=== PATIENT | male | born 1945 | race Caucasian/White ===

== ENCOUNTER 2016-09-29 12:00 | Inpatient (IN) | payer MEDICARE ==
[~2016-09-29] VITALS: Ht 188 cm; Wt 104.4 kg
--- NOTE | ~2016-09-29 | HP ---
PATIENT'S NAME: ELLIS SUE [facility] AGE: 71 Y [address] ROOM: [place] [address] LOCATION: [facility] ADMIT DATE: 09/29/2016 History & Physical DISCHARGE DATE: FAMILY PHYSICIAN: Helena Olvera PA-C ATTENDING PHYSICIAN: Deana Calderon DATE OF SERVICE: 09/29/2016 The patient was referred from [place]. REASON FOR REFERRAL: Intracerebral hemorrhage. PATIENT IDENTIFICATION: Ellis Sue is a 71-year-old male. PRESENTING COMPLAINTS: Decline in function. HISTORY OF PRESENT ILLNESS: History was obtained in part from the patient's family, , as well as the patient, himself. History is that the patient has been experiencing decline in his thought as well as in his gait over the last three weeks. The symptoms got more severe in the last 3 days. The patient also started having difficulty with vision and trouble with focusing and having headache since September 12, 2016. The patient was seen in the emergency room at [facility] and a head CT scan was obtained. The head CT scan indicated left occipital hemorrhage with possible tumor. The patient was therefore transferred to [place] for evaluation and treatment. PAST MEDICAL HISTORY: Significant for hypertension, hyperlipidemia, diverticulosis, prostatitis. MEDICATIONS: 1. Alprazolam. 2. Amlodipine. 3. Ascorbic acid. 4. Aspirin. 5. Cholecalciferol. 6. Fenofibrate. 7. Fish oil. 8. Furosemide. 9. Glucosamine. 10. Latanoprost. PATIENT'S NAME: ELLIS SUE [facility] AGE: 71 Y [address] ROOM: [place] [address] LOCATION: [facility] ADMIT DATE: 09/29/2016 History & Physical DISCHARGE DATE: FAMILY PHYSICIAN: Helena Olvera PA-C ATTENDING PHYSICIAN: Deana Calderon 11. Lisinopril. 12. Multivitamin. 13. Simvastatin. 14. Timolol. 15. Tramadol. 16. Bactrim. ALLERGIES: DULOXETINE. FAMILY HISTORY: No family history relevant to present problems. SOCIAL HISTORY: The patient is a retired construction electrician. He is . REVIEW OF SYSTEMS: A 10-point review of systems was carried out. The only abnormal finding was as reported in the history of present illness. PHYSICAL EXAMINATION: GENERAL: The patient is a pleasant gentleman, who was alert and cooperative through the examination. VITAL SIGNS: Blood pressure 147/69, pulse rate 73. NEUROLOGIC: Speech is intact. Cranial nerves, the patient has a right visual field defect. There is no facial droop. Motor examination, the patient has grossly normal strength in all the major muscle groups of his upper and lower extremities. He is able to ambulate with a walker, but he is unsteady on his feet. HEAD: His head is atraumatic. EYES AND EARS: No evidence of trauma. SKIN: No skin rashes or skin masses. EXTREMITIES: No cyanosis or clubbing. CARDIOVASCULAR: Heart sounds are present. RESPIRATORY: The patient is not short of breath at bedside. REVIEW OF IMAGING STUDIES: The patient has had a head CT scan performed in [place] on September 29, 2016. CT scan shows a hemorrhage with possible underlying lesion. He has also had an MRI done here at [facility]. The MRI shows a 29 x 30 mm nodular enhancing mass at the left occipital pole with secondary hemorrhage in the occipital lobes extending anteriorly with surrounding vasogenic edema. DIFFERENTIAL DIAGNOSIS: Includes metastatic lesions versus primary brain neoplasm with secondary PATIENT'S NAME: ELLIS SUE [facility] AGE: 71 Y [address] ROOM: [address] [address] LOCATION: [facility] ADMIT DATE: 09/29/2016 History & Physical DISCHARGE DATE: FAMILY PHYSICIAN: Helena Olvera PA-C ATTENDING PHYSICIAN: Deana Calderon. ASSESSMENT: A 71-year-old male with history of decline both in thought process and gait in the last 3 weeks, worsening over the last couple of days, associated with visual disturbances and headache. Imaging studies show a hemorrhagic left occipital mass with surrounding edema. MEDICAL DECISION MAKING: I reviewed the imaging studies with the patient and his and explained the findings to them. I told her that the patient likely has hemorrhage from a tumor and it will be necessary to clarify the type of tumor. This will require obtaining tissue and the most efficient way of doing this would be with the craniotomy. I have therefore recommended the procedure of left occipital craniotomy for resection of mass and evacuation of hematoma to the patient and his . The rationale will be to obtain a sample of the tumor to enable further treatment if needed and also to remove the hemorrhage around it. Hopefully, this surgery will be carried out in the next few days. The patient and his had a chance to ask questions which have been answered as best as possible. I will put his name down provisionally for surgery on October 02, 2016 or sooner, if there is a change in his level of consciousness. MD JIL FARIA/catrachito /[id number]: [id number] T: [id number] HISTORY & PHYSICAL
--- NOTE | ~2016-09-29 | OR ---
PATIENT'S NAME: SAVANNAH BAIG [facility] AGE: 71 Y [address] ROOM: [address] [address] LOCATION: [facility] ADMIT DATE: 09/30/2016 OR/Procedure Report DISCHARGE DATE: FAMILY PHYSICIAN: Helena Olvera PA-C ATTENDING PHYSICIAN: Deana Calderon SURGEON: Deana Calderon MD TOY STUFFER: Angela Olivia. DATE OF PROCEDURE: 10/02/2016 PREOPERATIVE DIAGNOSIS: Left occipital hemorrhagic brain tumor. POSTOPERATIVE DIAGNOSIS: Left occipital hemorrhagic brain tumor with involvement of right occipital lobe. PROCEDURE PERFORMED: 1. Left occipital craniotomy and resection of hemorrhagic tumor. 2. Right occipital biopsy of abnormal right occipital area. ANESTHESIA: General. ANESTHESIA PROVIDER: Suhail Purvis MD. HISTORY: The patient is a 71-year-old gentleman who presented with decline in his overall level of function and his thought process. The patient had a head CT scan, which showed a left occipital hemorrhage with possible underlying tumor and this was confirmed with MRI scan. Neurologically, the patient had reduction in his visual field on the right- side. He was also unsteady on his feet and nauseated with headache. Surgery was recommended to help establish a diagnosis and to help plan treatment. The procedure, benefits, and risks were discussed with the patient and his ; and with his consent, he was brought to the operating room for surgery. Prior to the surgery, MRI was done with Modtialth protocol to help with surgery planning. PROCEDURE IN DETAIL: In the operating room, the patient was placed in a supine position. Anesthesia was induced. He was intubated, a Lauren catheter was placed, and appropriate support lines were placed. The patient's head was then secured in a 3-pin Garcia head of conservation and he was turned to a prone position on a Roberto table taking care to protect all pressure points. The [employer] System was setup and registration was carried out. Using the stealth images, the incision line was marked out corresponding to the surface marking of the tumor in the patient's occipital area. The hair was clipped. A horseshoe incision was marked out. The whole area was prepped and draped in a sterile fashion. Local anesthesia was infiltrated along the incision line. PATIENT'S NAME: SAVANNAH BAIG [facility] AGE: 71 Y [address] ROOM: [id number], [place] [address] LOCATION: [facility] ADMIT DATE: 09/30/2016 OR/Procedure Report DISCHARGE DATE: FAMILY PHYSICIAN: Helena Olvera PA-C ATTENDING PHYSICIAN: Deana Calderon The incision was opened with a #10 blade and Bovie was used to extend the incision to the skull. The scalp was peeled back and held back with 2-0 Vicryl sutures attached to rubber bands, which was in turn held with Allis forceps. A nitesh hole was made and a craniotomy flap was turned. The dura was opened. The dural opening exposed both the left and right occipital areas. There was some discoloration in the right occipital lobe. The biopsy was taken from this area and it was sent for frozen section. The frozen section results came back indicating diagnostic tissue with hypercellularity in areas. The bulk of the tumor was in the left occipital area. The craniotomy was therefore extended to fully expose the left occipital area as well. The dura was opened. The tumor became visible. Working very carefully, the BooknGon ultrasound aspirator was used to remove the tumor as well as the hemorrhage associated with it. The tumor removal continued until all abnormal tissue was removed. This portion was also sent for permanent section. The microscope was brought in and a thorough search was made for any abnormal areas of tumor and all visibly abnormal tissue was removed. Irrigation was used to wash out the debris and hemostasis was achieved. The dura was closed. It was not possible to close the dura completely and some dura repair was used to augment the dural closure. The bone flap was then replaced. The pieces of bone were sewn together with sutures using holes drilled around the bone flap edges as well as around the craniotomy edges. The bone flap was then attached to the craniotomy defect. The scalp was closed using appropriate suture materials. A sterile dressing was applied. The patient was then rolled back to supine position. The Garcia head of conservation was removed from his head. His anesthesia was reversed, he was extubated, and taken to the recovery room to complete his recovery. I was present at and performed every aspect of this procedure, assisted by the operating room nurses. There were no apparent intraoperative complications. Swabs, needles, and instruments were all accounted for at the end of the case. Estimated blood loss was 200 mL and there was no reason for blood transfusion. The patient's prognosis is uncertain at this time given the diagnosis of malignant tumor. There was also involvement of the right occipital area from the biopsy we took. Further treatment will depend on the final pathology. PATIENT'S NAME: SAVANNAH BAIG [facility] AGE: 71 Y [address] ROOM: [id number] [address] LOCATION: [facility] ADMIT DATE: 09/30/2016 OR/Procedure Report DISCHARGE DATE: FAMILY PHYSICIAN: Helena Olvera PA-C ATTENDING PHYSICIAN: Deana Calderon MD CNO/catrachito /[id number] d: 10/03/162357 t: 10/14/162019, OPERATIVE SUMMARY
--- NOTE | ~2016-09-29 | DS ---
PATIENT'S NAME: SAVANNAH BAIG [facility] AGE: 71 Y [address] ROOM: [address] [address] LOCATION: [facility] ADMIT DATE: 09/30/2016 Discharge Summary DISCHARGE DATE: 10/06/2016 FAMILY PHYSICIAN: Helena Olvera PA-C ATTENDING PHYSICIAN: Deana Calderon REASON FOR ADMISSION: The patient is a 71-year-old gentleman referred from [facility]. The patient and his indicated that the patient had been gradually declining in function both in his thought processes as well as in his walking in the 3 weeks prior to admission and especially in the 3 days prior to admission. The patient has also had headaches and trouble with his vision. A head CT scan showed a large left occipital hematoma. MRI scan showed that there was a mass associated with the hematoma. Clinically, the patient was very weak and could hardly ambulate on his own. He walked short distances with a walker and had a right significant homonymous hemianopia. TREATMENT RENDERED: The patient was taken to the operating room and underwent craniotomy and resection of the occipital hematoma and mass. Final pathology confirmed that this was a malignant melanoma. The patient was referred to oncology for consultation, and he has been seen and is being followed up by Oncology. At the time of dismissal, the patient's vision had improved and he was able to read the clock on the wall from his bed. He was able to ambulate independently, but he was hampered by the right homonymous hemianopsia. He was also followed up by Dr. Rangel, his regular policyholder information clerk. I will see the patient back in clinic after about a week to take his sutures out. FINAL DIAGNOSIS: Metastatic tumor to occipital region with associated hemorrhage, final pathology melanoma. MD JIL FARIA/catrachito /[id number] d: 10/15/16 0156 t: 10/15/161999, DISCHARGE SUMMARY
[2016-09-29] MEDS ORDERED: NORVASC5 MG PO (13:50)
[2016-09-29] MEDS ORDERED: VITAMIN C1000 MG PO (13:51)
[2016-09-29] MEDS ORDERED: ASPIRIN LO-DOSE81 MG PO (13:51)
[2016-09-29] MEDS ORDERED: TRICOR145 MG PO (13:52)
[2016-09-29] MEDS ORDERED: VITAMIN D-32000 UNI1 PO (13:52)
[2016-09-29] MEDS ORDERED: FISH OIL 1,2001 EACH PO (13:52)
[2016-09-29] MEDS ORDERED: XALATAN2.5 ML OPHTH (13:53)
[2016-09-29] MEDS ORDERED: GLUCOSAMINE &1 EACH PO (13:53)
[2016-09-29] MEDS ORDERED: PRINIVIL (ZESTRI5 MG PO (13:53)
[2016-09-29] MEDS ORDERED: BACTRIM DS1 TAB PO (13:54)
[2016-09-29] MEDS ORDERED: ULTRAM50 MG PO (13:54)
[2016-09-29] MEDS ORDERED: ZOCOR40 MG PO (13:54)
[2016-09-29] MEDS ORDERED: MULTIPLE VITAM1 EACH PO (13:54)
[2016-09-29] MEDS ORDERED: TIMOPTIC XE 0.5%5 ML OPHTH (13:54)
[2016-09-29] MEDS ORDERED: SUDAFED30 MG PO (13:56)
[2016-09-29] MEDS ORDERED: TYLENOL EXTRA500 MG PO (13:58)
--- NOTE | 2016-09-29 14:37 | NUR ---
71 Y/O MALE ADMITTED FOR A LT OCCIPITAL INTERCEREBRAL HEMORRHAGE - C/O FOR THE PAST FEW WEEKS OF NYSTAGMUS, HEADACHES, UNSTEADY GAIT, WEAKNESS, DIZZINESS, CONFUSION, FORGETFUL OF & ABOUT SIMPLE THINGS. PT IS A&OX3 BUT DID NOTICE TODAY THAT HE IS UNABLE TO READ WRITTEN WORDS ON A PAGE. ALLERGIES - CYMBALTA MEDICAL & SURGICAL HISTORY - APPY, BILAT ROTATOR CUFF, LT BROKEN SHOULDER, TONSILS. GLAUCOMA, HYPERTENSION, HIGH CHOLESTEROL, RECURRENT PROSTATITIS, DIVERTICULITIS, INDEGESTION, HX OF A GI BLEED RELATED TO BEING ON LASIX & POTASSIUM YRS AGO. DOES HAVE SOME BILAT LOWER LEG EDEMA NOTED. DEPRESSION & ANXIETY WITH A HISTORY OF 2 ADMITS TO [facility] IN [place] AND HAVING 14 ECT'S IN 2006. PT HISTORY OF BEING A FORMER SMOKER X23 YRS BUT QUIT IN 1986, THEN CHEWED TOBACCO AFTER THAT & QUIT IN 2001. DRINKS ALCOHOL 3X/WK AND ONLY 1 DRINK WHEN HE HAS SOMETHING. REPORT GIVEN TO PT PRIMARY CARE NURSE [facility] ADM EDUCATION COMPLETED WITH PT & HIS .
--- NOTE | 2016-09-29 15:13 | NUR ---
Significant Event: Patient is alert and oriented x3. VSS on RA. Lungs are clear and slightly diminished in the bases. PERRLA. Follows commands, and moves spontaneous. NIHSS-4. Patient is unable to see peripheral vision on the right side. Can't see hand until it is lined up with nose. Frontal MATIAS. Edema to right leg- 2+, left leg is 1+. Small abrasions to right leg. Stress in continence at times. at bedside. Pleasant and cooperative with care. Follow up:
[2016-09-29 17:28] LABS: ESTIMATED GFR (MDRD EQUATION) > 60
--- NOTE | 2016-09-30 02:29 | NUR ---
Significant Event: Alert to self had problems with first assessment telling me day and year but was able to give me full date on second assessment. Able to state location. Follows commands. Some peripheral vision loss on R) side. Ataxia on R). Has R) leg drift. NIHSS 5. Up 1 assist GBW. On tele SR. Has edema to lower extremities. RA lungs clear and dim. Regular diet. Has some stress inc. IV to R) forearm SL. Follow up:
--- NOTE | 2016-09-30 16:28 | NUR ---
Significant Event: Oriented to person and place first and third assessment. Patient was drowsy and disoriented to time and place on second assessment but later was able to arouse and was re-oriented to person and place. Physician saw patient today and spoke with patient and family in regards to MRI. Will have craniotomy on Sunday. Has been nauseated today and states he feels constipated. Administered Zofran and milk of magnesia. Patient has difficulty voiding at times but is able to after trying for a few minutes. Refuses pain medication and states pain in head is tolerable throughout the shift. VSS. 1A with walker and gait belt and can be unsteady. at bedside throughout shift. Pupils equal and reactive. Vital signs stable. Follow up:
--- NOTE | 2016-09-30 17:39 | NUR ---
09/30/16: MARÍA FRY,RN HAS READ/REVIEWED [facility] RN CHARTING AND AGREES.
--- NOTE | 2016-10-01 05:23 | NUR ---
Significant Event: PATIENT IS ALERT AND ORIENTED X3. FORGETFUL, STATED EARLIER IN SHIFT THAT HE JUST FEELS "FOGGY". VSS. PERRLA. FOLLOWS COMMANDS. DENIES PAIN, MATIAS, N/V, N/T. SR-SINUS GYPSY. ROOM AIR-1L AT [facility]. REGULAR DIET, TAKES ONE-TWO PILLS AT A TIME. LAST BM 09/28-ACTIVE X4. 1A GB/WALKER-UNSTEADY. R) FA-SL'D. DOES HAVE SOME RIGHT PERIPHERAL VISION LOSS. USES GRADUATE URINAL-PATIENTS PREFERENCE. Follow up: SURGERY SCHEDULED FOR SUNDAY.
--- NOTE | 2016-10-01 17:30 | NUR ---
Significant Event: Oriented x3. PERRLA 3.0. Ambulates 1A with gait belt. Denies nausea today and has been able to eat some food. Denies pain or discomfort. Permits signed for craniotomy tomorrow morning and to be NPO at midnight. VSS and on room air today. at bedside throughout the shift. IV R)forearm and receives IV decadron. Follow up:
--- NOTE | 2016-10-01 17:48 | NUR ---
10/01/16: MARÍA FRY,RN HAS READ/REVIEWED [facility] RN CHARTING AND AGREES
[2016-10-01 18:45] LABS: BASOPHIL % 0.1 %; HEMATOCRIT 41.1 % (37.0-53.0); HEMOGLOBIN 14.2 g/dL (11.0-16.0); IMMATURE GRANULOCYTE # 0.1 K/uL (0.0-0.3); IMMATURE GRANULOCYTE % 0.4 %; LYMPHOCYTE # 1.4 K/uL (0.8-4.0); LYMPHOCYTE % 10.4 %; MCH 30.5 pg (27.0-34.0); MCHC 34.5 gm/dL (32.0-36.5); MCV 88.2 fl (83.0-98.0); MONOCYTE # 0.4 K/uL (0.0-1.0); MONOCYTE % 3.3 %; MPV 10.3 fl (9.4-12.4); NEUTROPHIL # (ANC) 11.3 K/uL (1.4-9.0); NEUTROPHIL % 85.8 %; NRBC % 0 /100WBC (0-0.00); PLATELET COUNT 264 K/uL (150-450); RBC 4.66 M/uL (3.50-5.50); RDW-CV 12.8 % (11.9-14.6); WBC 13.1 K/uL (4.0-11.0)
[2016-10-01 18:54] LABS: INR - (THERAPEUTIC) 1.07 (0.92-1.07); PROTIME 11.2 SECONDS (9.8-11.4); PTT 27 SECONDS (25-32)
[2016-10-01 19:02] LABS: ALBUMIN 3.7 gm/dL (3.5-5.0); ANION GAP 13.1 (10.0-19.0); CALCIUM 9.5 mg/dL (8.5-10.5); CREATININE 1.2 mg/dL (0.6-1.3); POTASSIUM 4.1 mMol/L (3.7-5.1); TOTAL BILIRUBIN 0.6 mg/dL (0.0-1.5); TOTAL PROTEIN 6.9 g/dL (6.0-8.4)
--- NOTE | 2016-10-02 04:29 | NUR ---
Significant Event: PATIENT IS ALERT AND ORIENTED X3. FOLLOWS COMMANDS. VSS. PERRLA. R) ARM WEAK HAND GRASP, R) LEG MODERATE, L) STRONG. R) VISUAL IMPAIRMENT. DENIES N/T AND PAIN. DOES HAVE A SLIGHT MATIAS. SINUS RHYTHM. ROOM AIR. REGULAR DIET-POOR. LAST BM 09/28-ACTIVE X4. 1A GB/WALKER. DOES LIKE TO STAND AT BEDSIDE AND URINATE IN A GRADUATE. R) FA-SHILPI'D. PRE-OP SHOWER DONE. Follow up: SURGERY AT 0730 AND THEN TO ICU.
--- NOTE | 2016-10-02 18:48 | NUR ---
SIGNIFICANT EVENT: PATIENT ALERT, ORIENTED X3. OPENS EYES SPONTANEOUSLY AND TO VOICE. PUPILS EQUAL AND REACTIVE. SPEECH IS SLOW AND MUMMBLED. PATIENT MORE ALERT TOWARDS THE END OF THE SHIFT. PATIENT COMPLAINED OF OCCIPITAL REGION HEADACHE ONCE, MORPHINE 2 MG IV GIVEN, RELIEF NOTED, DR TONG AWARE AND NOTIFIED OF ALL NEURO ASSESSMENT FINDINGS. PATIENT MOVES ALL 4 EXTREMITIES SPONTANEOUSLY AND TO COMMANDS. R) SIDE WEAKED THAN L). SIGNIFICANT DEFICIT OF PERIPHERAL VISION, UNLESS IT'S UPCLOSE AND IN CENTRAL VISION, PATIENT ONLY SEES SHADES OF COLORS AND SHAPES. PATIENT HAS BEEN IN SINUS RHYTHM, HR 60-90S. PULSES PALPABLE THROUGHOUT. EDEMA PRESENT IN LOWER EXTREMITIES. BP STABLE, HYDRALAZINE 10 MG GIVEN IV X1 TO KEEP SBP<160, AVAILABLE TO GIVE EVERY 1 HOUR. O2 DECREASED TO 2L NASAL CANNULA, SATS MID TO UPPER 90S. NON PRODUCTIVE COUGH. NPO. BOWEL SOUNDS ACTIVE, NO BM TODAY. SPEECH TO EVALUATE IN AM. RESUME PO MEDS WHEN AWAKE AND PASES BEDSIDE SWALLOW ASSESSMENT. MORGAN INTACT, ADEQUATE URINE OUTPUT. PATIENT REPOSITIONED EVERY 2 HOURS. L) PIV INFUSING NS AT 75 ML/HR. NO COMPLICATIONS. FOLLOW UP: CONTINUE TO MONITOR
--- NOTE | 2016-10-03 03:53 | NUR ---
Significant Event: A&Ox3, Slow to respond to questions at times. Pupils equal and reactive. VSS on 2L O2. SBP between 150s-130s, no PRN BP meds given. Q1hr neuro checks. Patient states he is having blurred vision, peripheral vision impaired. Patient denies numbness/tingling. Moves all extremities spontaneously and to command. Right sided hand grasp slightly weaker than left. Complains of a generalized headache, but denies the need for pain medication. Morphine, 2MG, given X2. Lauren patent. Last BM on 09/28. NPO needs swallow study. Patient rested well this shift. at bedside through out night. Follow up:
--- NOTE | 2016-10-03 15:40 | NUR ---
SIGNFICANT EVENT: Pt remains Q1 Neuro checks. Oriented X [address] Sometimes forgetful to birthday and date. Pupils are 3 and brisk. Sensations are intact and appropriate. Pt states pain is dull to the occipital area. Currently on room air with sats at 95%. Lauren patent with 1350ml output. this shift. Current orders are for patient to remain bedrest. Pt passed bedside swallow test today by RN. Follow up for possible transfer.
--- NOTE | 2016-10-03 16:00 | NUR ---
Introduced self and role of care management to patient's and their granddaughter. Patient sleeps through conversation. Patient lives with in [place]. She says he is doing well but still has lots of visual changes, that she hopes improve. She plans on him going home when ready for discharge. She says he has not been out of bed since surgery but she anticipates he will do well. She says she is a nurse and isn't concerned about him going home. Will follow.
--- NOTE | 2016-10-04 05:30 | NUR ---
Significant Event: Patient A/Ox3. FOLLOWS COMMANDS. MOVES ALL EXTREMITIES. HR'S 50'S-60'S. VSS. REMAINS ON RA, O2 SATS >91%. NO BM DURING SHIFT. PULLED MORGAN AT 1920, 2340 PT UNABLE TO VOID, UNCOMFORTABLE. BLADDER SCANNED 300ML, CALLED DR TONG, REPLACED MORGAN AT 0000. ADEQ UOP. MORPHINE GIVEN FOR HEADACHE. TMAX 99.7. NS AT 75ML/HR. DRESSING TO R) HEAD C/D/I, CHANGED DURING SHIFT. Follow up: MRI THIS AM.
[2016-10-04 11:00] LABS: CREATININE 0.8 mg/dL (0.6-1.3)
[2016-10-04 11:02] LABS: ESTIMATED GFR (MDRD EQUATION) > 60
--- NOTE | 2016-10-04 12:15 | NUR ---
Spoke with patient's as patient is off the unit for MRI. Talked with her about how he did with therapy. She says he is about at the baseline he was before admission and she is confident she can care for him at home. She says plan is home and if anything changes she will let me know. Will follow.
--- NOTE | 2016-10-04 12:20 | NUR ---
Significant Event: a/o x3. Slow speech, takes some time to process information/gather thoughts. Occipital headache. Gave 2 mg morhphine x1 with some relief. VSS. RA. Lungs clear/dim. Active bowel sounds. No BM. Some nause late morning. Zofran x1. Lauren in place. Vision remains blurred, unable to distinguish between colors, can see differences in bright vs dim light only. 2A pivot to chair with walker. Left to MRI at 1205 Follow up: MRI results
--- NOTE | 2016-10-04 12:37 | NUR ---
A - NUT F/U. NAUSEA - MEDS GIVEN. DECREASED APPETITE. LABS: GLU 151, WBC 13.1. MEDS: IVF, DECADRON, BOWEL/NAUSEA. DIET: REG. INTAKE: REF-100% & NPO. NEEDS: 3951-1350 KCAL, 81-102 G PRO D - INADEQUATE NUTRIENT INTAKE R/T DECREASED APPETITE AEB INTAKE RECORD. I - GOAL FOR INTAKE 50-100% BY NEXT ASSESSMENT. WILL ADD ENSURE TID TO INC NUTRIENT INTAKE. M/E - WILL MONITOR INTAKE. F/U IN 3-5 DAYS.
--- NOTE | 2016-10-04 15:32 | NUR ---
Significant Event: ASSUMED CARES AT 1315. PATIENT DROWSY BUT ORIENTED. OPENS EYES TO VOICE. STATES HE IS JUST TIRED. JUST HAD GOTTEN BACK AT 1315 FROM MRI. PATIENT'S VISION IMPAIRED WORSE SINCE SURGERY SO DR TONG WANTED MRI DONE. AWAITING RESULTS. PUPILS 4MM, BRISK. FOLLOWS COMMANDS, RT SIDE WEAKER. DENIES NUMBNESS/TINGLING. LUNGS CLEAR AND DIM ON ROOM AIR. C/ O SLIGHT PAIN TO INCISION BUT HAS DENIED NEED FOR PAIN MEDS AT THIS TIME. DID HAVE MORPHINE THIS AM PER OTHER NURSE. DECREASED APPETITE, WAS NAUSEATED THIS AM. ZOFRAN GIVEN BY PRIOR NURSE AT 1100. HAS ONLY HAD SIPS OF WATER SO FAR TODAY. MORGAN INTACT DRAINING YELLOW URINE. IV'S X 2 IN RT AND LEFT FOREARMS, NORMAL SALINE RUNNING AT 75MLS/HR. DRESSING TO RT HEAD DRY AND INTACT. UP WITH 2 ASSIST PIVOT, REFUSED THERAPY THIS AFTERNOON. ALARMS ON FOR SAFETY. Follow up: NEURO STATUS/VISION. MRI RESULTS. NEED TO ASK DR TONG FOR ANOTHER PAIN MEDICATION POSSIBLY TO HAVE BESIDES MORPHINE. LAST BM 09/28, ALSO WILL NEED SOMETHING FOR THIS , BUT PATIENT HAS NOT REALLY BEEN EATING.
--- NOTE | 2016-10-05 04:25 | NUR ---
Significant Event: PATIENT WAS DROWSY BUT EASILY WOKEN BY VOICE AND TOUCH. ORIENTED AND PLEASANT. ANSWERS QUESTIONS APPROPRIATELY. REPORTS HIS VISION IS GETTING SLIGHTLY BETTER AND CAN NOW SEE COLORS AND SOME IMAGES SUCH FACES AND LETTERS. RIGHT SIDE SLIGHTLY WEAKER. DR. TONG ROUNDED LAST NIGHT REPORTING THE POSSIBILITY OF METS AND THE PLAN TO PERFORM A FULL BODY CT SCAN ALTHOUGH THIS WAS NOT ORDERED. OPTH. CONSULTED. RECEIVED TYLENOL AT HS. MORGAN TO DD. NS INFUSING AT 75ML/HR. DRESSING TO RIGHT POST. HEAD DRY AND INTACT. UP X2 ASSIST PIVOT. Follow Up: STOOL SOFTENER WAS MENTIONED TO DR. NO ORDERS WERE WRITTEN/OBTAINED. MAY MENTION THIS ONCE AGAIN TODAY.
[2016-10-05 10:38] LABS: CREATININE 0.8 mg/dL (0.6-1.3); ESTIMATED GFR (MDRD EQUATION) > 60
--- NOTE | 2016-10-05 13:38 | NUR ---
Significant Event: VSS. PATIENT A/O X 3. NOT NEARLY DROWSY TODAY YESTERDAY. FOLLOWS COMMANDS. RT SIDE REMAINS SLIGHTLY WEAKER BUT BETTER. DENIES NUMBNESS/TINGLING. PUPILS 4MM, BRISK. LUNGS CLEAR AND DIM ON ROOM AIR. C/O SLIGHT PAIN TO RT HEAD INCISION THIS AM, TYLENOL GIVEN AT 0640 WITH RELIEF NOTED. DRESSING TO RT HEAD CHANGED TODAY OTHER CAME OFF. UP WITH 2 ASSIST AND WALKER. REG DIET, BETTER APPETITE TODAY. PATIENT GOING DOWN NOW FOR CT OF CHEST, ABDOMEN, AND PELVIS. IV X 2 IN RT AND LEFT FOREARMS. ALARMS ON FOR SAFETY. Follow up: NIHSS. MONITOR NEURO STATUS. RESULTS OF CT.
--- NOTE | 2016-10-06 04:27 | NUR ---
Significant Event: PATIENT ALERT AND ORIENTED X3 THROUGHOUT SHIFT. FOLLOWS COMMANDS.STRENGTH SEEMS TO BE EQUAL BILATERALL. VISION IMPROVED. PATIENT CAN READ SOME WORDS. DENIES PAIN AND NEED FOR TYLENOL. DRESSING TO BACK OF HEAD REPLACED. POOR APPETITE BUT DRINKS ENSURE WELL. 2CM NODULE NOTED TO CT CHEST. WILL BIOPSY OUTPATIENT IN 1 WEEK. STOOL SOFTENERS ORDERED. PATIENT DENIED NEED FOR ADDITIONAL PAIN MEDICATION. POSSIBILITY FOR DISCHARGE HOME VS REHAB. Follow up: NO BM SINCE 10/02.
--- NOTE | 2016-10-06 11:31 | NUR ---
Social visit with Ellis and his . Talked with them both, plan is still home. I also talked with them about HHC. They are open to this. They would like to go with [facility]. I let them know that I would make a referral to them and then have them follow up upon discharge. Called and faxed a formal referral to Chitra at [facility]. She tells me that they can take him on for HHC needs. F2F was placed on the chart for MD to fill out. Fax cover letter left on the chart for nursing to fax dismissal orders, meds and F2F to HHC when he is dismissed. I also left a sticky note with instructions on front of the chart for nursing as well. Also asked that they call [facility] when he dismiss so they know to follow up with him carter. No other questions, needs or concerns. CM to continue to follow and assist. Plan for home with [facility].
--- NOTE | 2016-10-06 16:44 | NUR ---
Significant Event: Alert, oriented but makes confused statements at times. Vision is worse than yesterday. VSS, afebrile, room air. Hydralazine given for SBP >160. Up with 1-2 assist. Voiding without difficulties. Dressing changed due to falling off. Small BM this morning. Home with family and home health later today. Follow up: Monitor visual hallucinations and vision impairment, monitor confusion.
[2016-10-06] MEDS ORDERED: NORCO 5-325 TA1 EACH PO (16:59)
== END 2016-10-06 19:05 | disposition disaster alternative care site (69) | DRG 25 ==
LOC: GICU 13:01 → GNTU 13:01 → GICU 09-30 14:02 → GNTU 09-30 14:02 → GICU 10-02 13:53 → GNTU 10-04 06:22
PROVIDERS: Anesthesiology; ADMIT Neurological Surgery
PROC: 00B00ZX Excision of Brain, Open Approach, Diagnostic (ICD-10-PCS; principal; 2016-10-02)
PROC: 00B00ZX Excision of Brain, Open Approach, Diagnostic (ICD-10-PCS; 2016-10-02)
DX: C71.4 Malignant neoplasm of occipital lobe (principal); I61.9 Nontraumatic intracerebral hemorrhage, unspecified; H53.461 Homonymous bilateral field defects, right side; I10 Essential (primary) hypertension; E78.5 Hyperlipidemia, unspecified; K57.90 Diverticulosis of intestine, part unspecified, without perforation or abscess without bleeding; N41.9 Inflammatory disease of prostate, unspecified
CPT/HCPCS: A9577; G0378; G8978; G8979; G8980; G8981; G8982; G8983; J0360; J0690; J1100; J2270; J2405; J3010; J7030; Q9967

== ENCOUNTER 2016-10-10 16:47 | Inpatient (IN) | payer MEDICARE, OTHER ==
[~2016-10-10] VITALS: Ht 188 cm; Wt 96.9 kg
--- NOTE | ~2016-10-10 | CON ---
PATIENT'S NAME: SAVANNAH BAIG [facility] AGE: 71 Y [address] ROOM: [place] [address] LOCATION: [facility] [place] ADMIT DATE: 10/11/2016 Consultation DISCHARGE DATE: FAMILY PHYSICIAN: PHYSICIAN, UNKNOWN ATTENDING PHYSICIAN: Deana Calderon DATE OF CONSULTATION: 10/13/2016 REFERRING PHYSICIAN: AMI CARLOS MD CARDIOLOGY CONSULT REASON FOR CARDIOLOGY CONSULT: Bradycardia. HISTORY OF PRESENT ILLNESS: This is a 71-year-old male, here for increased confusion and urination after being discharged from a hemorrhagic brain tumor resection, specifically from the left occipital area. There is questionable possibility of a metastatic disease from a lung tumor, which the biopsy is currently pending at this time. This cardiology consult is requested due to the patient having some asymptomatic bradycardia with a new right bundle-branch block as compared to previous EKGs. He denies any complaints of chest pain, shortness of breath, dyspnea on exertion, presyncope, syncope, nausea, or vomiting. He and his report that he was resting in bed at the time of the bradycardia with heart rates in the 40s. There were no signs of previous vagal maneuver including using the restroom or cough or vomiting. Overall, he is resting comfortably in his chair and is in no acute distress. PAST MEDICAL HISTORY: 1. Hypertension. 2. Hypercholesterolemia. 3. Brain malignancy, pending pathology, status post resection. 4. History of frequent UTIs. 5. Lung mass, currently pending biopsies. FAMILY HISTORY: The patient's mother had a history of skin cancer and heart failure. His father had a history of skin cancer on his lip. SOCIAL HISTORY: The patient admits to cigarette smoking for a total of 23 years. He quit smoking in 1986. While he was smoking, he smoked 1 pack of cigarettes per day. He then started using chewing tobacco and quit using that in 2001. He denies alcohol or illicit drug use. PATIENT'S NAME: SAVANNAH BAIG [facility] AGE: 71 Y [address] ROOM: [place] [address] LOCATION: [facility] [place] ADMIT DATE: 10/11/2016 Consultation DISCHARGE DATE: FAMILY PHYSICIAN: PHYSICIAN, UNKNOWN ATTENDING PHYSICIAN: Deana Calderon CURRENT MEDICATIONS: 1. Aspirin 81 mg p.o. twice daily. 2. Ceftin 500 mg p.o. twice daily. 3. Citroma 30 mL p.o. every 4 hours. 4. Colace 100 mg p.o. 3 times daily. 5. Fish oil 1000 mg p.o. daily. 6. Florastor 250 mg p.o. twice daily. 7. Glucosamine and chondroitin 2 capsules p.o. daily. 8. Norvasc 5 mg p.o. daily. 9. Prinivil 5 mg p.o. daily in the evening. 10. Senokot 1 tablet p.o. twice daily. 11. Multivitamin 1 tablet p.o. daily. 12. Tricor 160 mg p.o. daily. 13. Vitamin C 1000 mg p.o. daily. 14. Vitamin D 2000 units p.o. daily. 15. Zocor 40 mg p.o. daily. MEDICATION ALLERGIES: Cymbalta causing facial edema and elevated heart rate. REVIEW OF SYSTEMS: Pertinent positive review of systems listed in the HPI. All other review of systems evaluated and negative. DIAGNOSTICS: CMS evaluation shows a sodium of 141, potassium 3.9, BUN of 16, creatinine 0.5, and a glucose of 105. He has a TSH of 2.77. PHYSICAL EXAMINATION: VITAL SIGNS: Temperature 97.6, pulse 72, respirations 12, blood pressure 112/59, and O2 saturation 96% on room air. The patient weighs 97.8 kg. SKIN: [place], warm, and dry. EYES: Sclerae clear. No xanthelasmas. ENT: Oral mucosa is pink and moist. NECK: No jugular venous distention. No carotid bruits. CHEST: Respirations are even and unlabored. LUNGS: Clear to auscultation. HEART: Regular rate and rhythm. Normal S1, S2. No murmurs, rubs, or gallops. ABDOMEN: Soft nontender. MUSCULOSKELETAL: Equal muscle strength upper and lower extremities bilaterally against resistance. EXTREMITIES: Peripheral pulses palpable. No clubbing, cyanosis. Does have the presence of trace lower extremity edema present. PSYCH: Alert and oriented. Mood and affect are appropriate. He does respond PATIENT'S NAME: SAVANNAH BAIG [facility] AGE: 71 Y [address] ROOM: [address] [address] LOCATION: [facility] [place] ADMIT DATE: 10/11/2016 Consultation DISCHARGE DATE: FAMILY PHYSICIAN: PHYSICIAN, UNKNOWN ATTENDING PHYSICIAN: Deana Calderon to interview questions slowly. IMPRESSION AND PLAN: Per Dr. Brandy Jarrett. 1. Asymptomatic bradycardia. 2. New onset right bundle-branch block when compared to previous EKG. 3. Possible brain metastases from a lung cancer. Once again, biopsies are currently pending, and he is status post resection of a left occipital hemorrhagic brain tumor. 4. Urinary tract infection. Currently under the care of the Hospitalist Service with proper antibiotic usage. 5. Hypertension, currently well controlled. We recommend before considering any probability of a permanent pacemaker that we need to evaluate prognosis from possible brain metastases and discussion of code status by the primary care team and Oncology. Having said that he is asymptomatic at this time from bradycardia, does not really meet criteria for PPM. We will check an echocardiogram to fully evaluate ejection fraction as well as look for wall motion and valvular abnormalities. We will also check a 12-lead EKG to further evaluate current ST segments and other changes, that might be suggestive of coronary ischemia. We will continue to monitor, evaluate, and treat as appropriate. Thank you for this consult. Thank you for allowing [facility] to interact in the care of this patient. DEANDRE LIU APRN FOR MD KENDALL COLLADO/catrachito /[id number] d: 10/13/16 2312 t: 10/18/16 1704, CONSULTATION REPORT
--- NOTE | ~2016-10-10 | HP ---
PATIENT'S NAME: ELLIS SUE [facility] AGE: 71 Y [address] ROOM: [place] [address] LOCATION: [facility] ADMIT DATE: 10/10/2016 History & Physical DISCHARGE DATE: FAMILY PHYSICIAN: PHYSICIAN, UNKNOWN ATTENDING PHYSICIAN: Deana Calderon DATE OF SERVICE: 10/10/2016 PATIENT IDENTIFICATION: Ellis Sue is a 71-year-old male. PRESENTING COMPLAINT: Decreased responsiveness. HISTORY OF PRESENT ILLNESS: The patient had craniotomy and resection of a left occipital mass on October 02, 2016. The mass was possibly a metastatic tumor. The final pathology is still pending. The patient was discharged home on October 06, 2016. Over the next day or so, he started running a temperature. He also became less responsive overall. Urine culture was obtained and it grew E. coli. The patient continued to be less responsive today and I therefore asked for him to be brought to hospital so he could be admitted and to get IV fluids and IV antibiotics. The patient was admitted this afternoon. Prior to his earlier admission, the patient had been declining in his health and also having difficulty with vision and problems with focusing as well as having headaches since about September 12, 2016. PAST MEDICAL HISTORY: Significant for hypertension, hyperlipidemia, diverticulosis, and prostatitis. CURRENT MEDICATIONS: Several and please see chart. ALLERGIES: DULOXETINE. FAMILY HISTORY: No family history relevant to present problems. SOCIAL HISTORY: The patient is a retired optometric tech. He is . REVIEW OF SYSTEMS: PATIENT'S NAME: ELLIS SUE [facility] AGE: 71 Y [address] ROOM: [place] [address] LOCATION: [facility] ADMIT DATE: 10/10/2016 History & Physical DISCHARGE DATE: FAMILY PHYSICIAN: PHYSICIAN, UNKNOWN ATTENDING PHYSICIAN: Deana Calderon A 10-point review of systems was carried out. The only abnormal finding was as described in the history of present illness above. PHYSICAL EXAMINATION: GENERAL: On examination, the patient is a middle-age gentleman who was seen on the floor here. He was slightly drowsy, but arousable. VITAL SIGNS: Blood pressure 192/84, pulse rate 64. NEUROLOGICAL: The patient is awake and able to follow commands, but he is still drowsy. Cranial nerves, the patient has a right homonymous hemianopsia. Motor examination, the patient moves all extremities, but it is difficult to assess strength in individual muscle groups. Gait not tested. CARDIOVASCULAR: Heart sounds are present. RESPIRATORY: The patient is not short of breath at bedside. EXTREMITIES: No cyanosis or clubbing. SKIN: No skin rashes or skin masses. HEAD: There is a scar on the back of his head from his surgery. EYES AND EARS: No evidence of trauma. REVIEW OF IMAGING STUDIES: There are no imaging studies to review at this time. Urine culture grew E. coli sensitive to Ancef among other things. IMPRESSION: A 71-year-old with history of weakness, fever, and reduced appetite. Urine cultures grew E. coli. PLAN: The patient is being admitted for IV fluid and antibiotic treatment. His blood pressure will also be controlled. He will be followed up for biopsy of a lung mass that was found during his prior admission to determine if it is a tumor and for further treatment. MD JEANNE FARIAO/modl /[id number] D: [id number] T: [id number] HISTORY & PHYSICAL
--- NOTE | ~2016-10-10 | CON ---
PATIENT'S NAME: SAVANNAH BAIG [facility] AGE: 71 Y [address] ROOM: [place] [address] LOCATION: [facility] ADMIT DATE: 10/10/2016 Consultation DISCHARGE DATE: FAMILY PHYSICIAN: PHYSICIAN, UNKNOWN ATTENDING PHYSICIAN: Deana Calderon DATE OF CONSULTATION: 10/10/2016 REFERRING PHYSICIAN: AMI CARLOS MD CONSULTING PHYSICIAN: Dr. Carlos. REQUESTING PHYSICIAN: Dr. Calderon. REASON FOR CONSULTATION: Medical management. HISTORY OF PRESENT ILLNESS: The patient is a 71-year-old male, who has undergone a craniotomy and excision of a left occipital hemorrhagic tumor on October 02 here. The patient was discharged home and was doing relatively well. However, approximately 3 days ago, he developed altered mental status, frequent urination as well as fevers over 101. The patient does have a past medical history of recurrent UTIs and is on Bactrim suppressive therapy and has been taking that. He developed worsening mental state and was taken to the ER in [facility] [place]. The urine culture there showed E. coli with over 100,000, that was in fact resistant to Bactrim. The patient has been admitted to [facility] and started on Ancef to which the E. coli is sensitive. At this point, the patient is quite confused but follows commands. History is primarily provided by his . He does complain of urinary urgency and frequency. REVIEW OF SYSTEMS: All systems have been reviewed and are negative aside from pertinent positives mentioned above. PAST MEDICAL HISTORY: 1. Glaucoma. 2. Frequent UTIs, on suppressive Bactrim therapy. 3. Recent excision of a brain malignancy, pathology is still pending. 4. Essential hypertension. 5. Hypercholesterolemia. PATIENT'S NAME: SAVANNAH BAIG [facility] AGE: 71 Y [address] ROOM: [place] [address] LOCATION: [facility] ADMIT DATE: 10/10/2016 Consultation DISCHARGE DATE: FAMILY PHYSICIAN: PHYSICIAN, UNKNOWN ATTENDING PHYSICIAN: Deana Calderon SOCIAL HISTORY: The patient was a smoker in the 80s and subsequently chewed, but at this point has no toxic habits. FAMILY HISTORY: Reviewed and is noncontributory due to known underlying etiology for the patient's presentation. CURRENT MEDICATIONS: 1. Acetaminophen. 2. Amlodipine. 3. Ascorbic acid. 4. Aspirin. 5. Dulcolax. 6. Cholecalciferol. 7. Colace. 8. TriCor. 9. Fish oil. 10. Glucosamine. 11. [place]. 12. Ibuprofen. 13. Latanoprost. 14. Lisinopril. 15. Multivitamin. 16. Macrobid. 17. Ondansetron. 18. Sudafed. 19. Simvastatin. 20. Bactrim. 21. Timolol. 22. Tramadol. PHYSICAL EXAMINATION: VITAL SIGNS: Temperature 100.2, pulse 61, respirations 12, blood pressure 167/78, saturating 93% on 5 L nasal cannula. GENERAL: Appears as a chronically ill, elderly male, in no acute distress. NEUROLOGIC: Grossly nonfocal, although the patient does have known visual field deficits, though confrontational testing cannot be accomplished due to altered mental status. EYES: Show pupils are equal and reactive to light. LYMPHATIC: Shows no cervical lymphadenopathy. ENDOCRINE: Shows no thyromegaly. LUNGS: Clear to auscultation. HEART: Rate is regular. No appreciable murmurs, gallops, or rubs. PATIENT'S NAME: SAVANNAH BAIG [facility] AGE: 71 Y [address] ROOM: [address] [address] LOCATION: [facility] ADMIT DATE: 10/10/2016 Consultation DISCHARGE DATE: FAMILY PHYSICIAN: PHYSICIAN, UNKNOWN ATTENDING PHYSICIAN: Deana Calderon GI: Abdomen is soft, nontender, nondistended. : No costovertebral angle tenderness. VASCULAR: 2+ pedal pulses. MUSCULOSKELETAL: Unremarkable. PSYCHIATRIC: Reveals a male who is not able to fully cooperative with psychiatric exam. SKIN: Warm and dry. LABORATORY DATA: Review of studies from today is significant for sodium 133, glucose of 109, and an unremarkable CBC. Cultures from the outside facility do show E. coli, which is resistant to trimethoprim. IMPRESSION AND RECOMMENDATIONS: This is a 71-year-old male. He is being admitted with urinary tract infection. Individual problems to be addressed as follows: 1. Urinary tract infection. At this point, Ancef is acceptable. We will put the patient on probiotic for gastrointestinal prophylaxis. We will also get an ultrasound of his abdomen to make sure that there are no other complications associated with his urinary tract infection. 2. Metabolic encephalopathy/agitation. Family requested that we provide something to help him sleep, and we will provide him with gentle doses of benzodiazepines. If we are not successful with these, we will attempt antipsychotics instead. 3. Accelerated hypertension. The patient's home medications have already been restarted. 4. Deep venous thrombosis prophylaxis will be instituted if the patient stays within 48 hours. 5. Suppressive therapy with Bactrim for history of urinary tract infections. I believe this should be discontinued as his infection is now resistant to Bactrim. Additional management dependent on clinical course. Thank you for allowing us to participate in the care of this gentleman. We will follow the patient. Time dedicated to this patient's encounter is 35 minutes. MD PANTERA MILLER/catrachito PATIENT'S NAME: SAVANNAH BAIG [facility] AGE: 71 Y [address] ROOM: [place] [address] LOCATION: [facility] ADMIT DATE: 10/10/2016 Consultation DISCHARGE DATE: FAMILY PHYSICIAN: PHYSICIAN, UNKNOWN ATTENDING PHYSICIAN: Deana Calderon /[id number] d: 10/11/16 0122 t: 10/26/16 0601, CONSULTATION REPORT
--- NOTE | ~2016-10-10 | DS ---
PATIENT'S NAME: SAVANNAH BAIG [facility] AGE: 71 Y [address] ROOM: [address] [address] LOCATION: [facility] ADMIT DATE: 10/11/2016 Discharge Summary DISCHARGE DATE: 10/16/2016 FAMILY PHYSICIAN: Physician, Unknown ATTENDING PHYSICIAN: Deana Calderon REASON FOR ADMISSION: The patient had had craniotomy the week prior to this admission for metastatic melanoma to the brain. After he was released from hospital, he was well for a few days and then developed a urinary tract infection. He became very sick with the urinary tract infection and was readmitted for antibiotic treatment. The patient was admitted back on October 11, 2016. On examination, he was awake, but still quite drowsy. He had the previously known right homonymous hemianopia, but was able to see objects including the clock on the wall. TREATMENT RENDERED: The patient was started on Ancef as directed by the urine culture results, which grew E coli sensitive to Ancef. While in the hospital, the patient had some bradycardia and was seen by Cardiology for this reason. The impression is contained in the roller cleaner's dictation. The patient was also seen by Oncology. Overall, the patient improved and by the October 16, 2016, was well enough to be discharged. He was released with home care. Arrangements have been made for the patient to see roller cleaner in outpatient. He is also having a PET scan to check for additional tumor elsewhere. I should mention that the patient underwent a lung biopsy for a mass seen in the lung while on this admission. The biopsy came back indicating negative for tumor. FINAL DIAGNOSES: Urinary tract infection, treated with antibiotics; bradycardia, please see cardiology consult; known metastatic melanoma to brain. MD JIL FARIA/catrachito /[id number] d: 10/24/16 0257 t: 10/25/16 1240, DISCHARGE SUMMARY
--- NOTE | ~2016-10-10 | ECHO ---
Transthoracic Echocardiography Report (TTE) Demographics Patient Name SAVANNAH BAIG Date of Study 10/13/2016 Patient Number [id number] Visit Number [id number] Date of 1945 Room Number G6220 Accession Number [id number] Gender Male Age 71 year(s) Referring Kvng Montero Disability Representative Monico Mcgarry RVT, Physician RDCS Physician Interpreting Luiza Pateldha Patient Service Technician Pst Physician Supervising Ordering Physician Yesenia Muñiz MD/MLP WEB MANAGER Nurse Stress Gear Lapper Conclusions Contractility Score Summary Normal Left Ventricular contractility was noted. Summary Normal LV size and systolic function. The estimated left ventricular ejection fraction is 55-60%. Mild concentric left ventricular hypertrophy. Diastolic assessment reveals Grade I diastolic dysfunction. RV appears mildly dilated with normal function. Mild biatrial enlargement. Mild mitral annular calcification. The ascending aorta appears mildly dilated. The maximum diameter measures 3.9 cm. Procedure Type of Study TTE procedure:2D Echocardiogram. Procedure Date Date: 10/13/2016 Start: 01:33 PM Study Location: Inpatient Portable Technical Quality: Fair due to poor acoustical window. Indications:Bradycardia. Appropriate Use Criteria: 8 Patient Status: Routine HR: 65 bpm BP: 112/59 mmHg M-Mode/2D Measurements LV Diastolic Dimension: 5.62 cm LV Systolic Dimension: 3.53 cm LV Septum Diastolic: 1.28 cm LV PW Diastolic: 1.35 cm AO Root Dimension: 3.3 cm Cardiac Output: 7.07 l/min AV Cusp Separation: 1.9 cm RV Diastolic Dimension: 3.14 cm LA volume: 85 ml LVOT: 2.7 cm RV Base: 4.89 cm LVOT VTI: 19 cm RV Mid: 4.83 cm LV Stroke volume: 108.73 ml TAPSE: 3.58 cm TDI-S': 22.6 cm/s Doppler Measurements AV Peak Velocity: 1.03 m/s MV Peak E-Wave: 0.67 m/s AV Peak Gradient: 4.24 mmHg MV Peak A-Wave: 0.81 m/s AV Mean Gradient: 2 mmHg MV E/A Ratio: 0.83 LVOT Peak Velocity: 0.8 m/s MV P1/2t: 97 msec TR Gradient:7.84 mmHg PV Peak Velocity: 1.16 m/s Estimated RAP:5 mmHg PV Peak Gradient: 5.38 mmHg Estimated RVSP: 13 mmHg Estimated PASP: 12.84 mmHg E' Septal Velocity: 0.08 m/s A' Septal Velocity: 0.13 m/s E' Lateral Velocity: 0.12 m/s A' Lateral Velocity: 0.13 m/s Findings Left Ventricle Mild concentric left ventricular hypertrophy. Diastolic assessment reveals Grade I diastolic dysfunction. Right Ventricle RV appears mildly dilated with normal function. Left Atrium The left atrium is mildly dilated. There is no evidence of patent foramen ovale or atrial septal defect by color Doppler. Right Atrium The right atrium is mildly dilated. IVC measures 1.27 cm with inspiratory collapse. Mitral Valve Mild mitral annular calcification. Aortic Valve The aortic valve is mildly sclerotic. Difficult to image the aortic valve. Tricuspid Valve Normal tricuspid valve structure and function. Pulmonic Valve Normal pulmonic valve structure and function. Pericardial Effusion No evidence of pericardial effusion. Miscellaneous The ascending aorta appears mildly dilated. The maximum diameter measures 3.9 cm. Pleural Effusion No evidence of pleural effusion. Contractility Score LV regional wall motion:(0-Non visualized 1-Normal 2-Hypokinesis 3-Akinesis 4-Dyskinesis 5-Aneurysm) Signature dtt: BRANDY AGUILAR dtd: 10/13/16 2803 Physician Self Edit
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
[~2016-10-10 16:47] MED LIST changes: -ADVIL200 MG PO; -ALPHAGAN 05 ML/1 BOT OPHTH; -ATIVAN 1 MG1 MG PO; -CEFTIN500 MG PO; -COLACE100 MG PO; -DECADRON1 MG PO; -DULCOLAX5 MG PO; -KEPPRA LIQU100 MG/ML PO; -MACROBID100 MG PO; -MACRODANTIN *IA50 MG PO; -MORPHINE 20MG/ML PO; -SENOKOT8.6 MG PO; -ZOFRAN4 MG PO
[2016-10-10] MEDS ORDERED: ZOFRAN4 MG PO (17:20)
[2016-10-10] MEDS ORDERED: BACTRIM DS1 TAB PO (17:21)
[2016-10-10] MEDS ORDERED: ADVIL200 MG PO (17:21)
[2016-10-10] MEDS ORDERED: DULCOLAX5 MG PO (17:22)
[2016-10-10] MEDS ORDERED: COLACE100 MG PO (17:22)
[2016-10-10] MEDS ORDERED: MACROBID100 MG PO (17:23)
--- NOTE | 2016-10-10 18:25 | NUR ---
Patient is 71 yo male admitted from his home in [place] this afternoon by ambulance. patient had an intracranial bleed last week. had craniotomy on 10/02/16 which revealed a cancerous tumor. patient had a catheter. the catheter was removed on 10/03, patient was unable to void. it was re-inserted in the evening on 10/03. on 10/06, catheter was removed, and pt did void at least twice his stated and he was discharged that afternoon. home health was in the home. patient started running a fever on 10/07. on 10/08 pt was started on Bactrim. culture of urine showed resistance to bactrim. patient is admitted for hydration and antibiotic therapy. IV is started in right antecubital on 2nd try. pt domenica well. Education is given as documented to patient's , who was a RN. pneumatics are on bilat calves. pt domenica well. call light is within reach. denies needs at this time. Report is given to JULISSA Bai.
[2016-10-10 18:32] LABS: BASOPHIL % 0.1 %; EOSINOPHIL # 0.1 K/uL (0.0-0.5); EOSINOPHIL % 1.5 %; HEMATOCRIT 39.7 % (37.0-53.0); HEMOGLOBIN 13.4 g/dL (11.0-16.0); IMMATURE GRANULOCYTE # 0.1 K/uL (0.0-0.3); IMMATURE GRANULOCYTE % 1.8 %; LYMPHOCYTE # 1.1 K/uL (0.8-4.0); LYMPHOCYTE % 16.6 %; MCH 29.9 pg (27.0-34.0); MCHC 33.8 gm/dL (32.0-36.5); MCV 88.6 fl (83.0-98.0); MONOCYTE # 0.5 K/uL (0.0-1.0); MONOCYTE % 7.7 %; MPV 9.8 fl (9.4-12.4); NEUTROPHIL # (ANC) 4.9 K/uL (1.4-9.0); NEUTROPHIL % 72.3 %; NRBC % 0 /100WBC (0-0.00); PLATELET COUNT 227 K/uL (150-450); RBC 4.48 M/uL (3.50-5.50); RDW-CV 12.6 % (11.9-14.6); WBC 6.7 K/uL (4.0-11.0)
[2016-10-10 18:50] LABS: ALBUMIN 2.5 gm/dL (3.5-5.0); ALK PHOS 69 IU/L (33-138); ALT 86 IU/L (12-78); BLOOD UREA NITROGEN 16 mg/dL (6-24); CALCIUM 9.6 mg/dL (8.5-10.5); CHLORIDE 99 mMol/L (96-110); CO2 26 mMol/L (22-32); CREATININE 0.9 mg/dL (0.6-1.3); ESTIMATED GFR (MDRD EQUATION) > 60; SODIUM 133 mMol/L (135-145); TOTAL BILIRUBIN 0.6 mg/dL (0.0-1.5); TOTAL PROTEIN 6.3 g/dL (6.0-8.4)
[2016-10-10 18:51] LABS: ANION GAP 12.2 (10.0-19.0); AST 46 IU/L (10-40); POTASSIUM 4.2 mMol/L (3.7-5.1)
[2016-10-10 18:57] LABS: INR - (THERAPEUTIC) 1.02 (0.92-1.07); PROTIME 10.7 SECONDS (9.8-11.4); PTT 29 SECONDS (25-32)
--- NOTE | 2016-10-10 19:20 | NUR ---
Significant Event: PATIENT ADMITTED TO [facility] AT 1710. LIVES IN [place] WITH HIS . OPENS EYES SPONTANEOUSLY. REPLIES "SAVANNAH" WHEN ASKED NAME BUT DOES NOT RESPOND TO ANY OTHER ORIENTATION QUESTIONS. PUPILS 3.0/SLUGGISH. DOES SQUEEZE BILATERAL HANDS ON COMMAND WITH WEAK HAND GRASPS. DOES NOT MOVE BILATERAL LOWER EXTREMITIES ON COMMAND. TEMPERATURE 100.2. HX OF RECENT CRAINIOTOMY. LUNG SOUNDS CLEAR. 2 LITERS OF OXYGEN. INCONTINENT OF URINE ON ADMISSION. ADMITTED PER DR. TONG FOR WEAKNESS/UTI.
[2016-10-10 22:28] LABS: BILIRUBIN URINE NEGATIVE (NEGATIVE); BLOOD URINE 25 /UL (NEGATIVE); COLOR URINE YELLOW (YELLOW); GLUCOSE URINE NEGATIVE (NEGATIVE); KETONE URINE NEGATIVE (NEGATIVE); LEUKOCYTES URINE 500 /UL (NEGATIVE); NITRITE URINE NEGATIVE (NEGATIVE); PROTEIN URINE 15 mg/dL (NEGATIVE); TURBIDITY URINE 3+ (CLEAR); UROBILINOGEN URINE 1 mg/dL (NORMAL)
[2016-10-10 22:32] LABS: WBC URINE PACKED FIELD #/HPF (NEGATIVE)
[2016-10-10 22:34] LABS: BACTERIA URINE MANY (NEGATIVE); MUCUS URINE 2+ (NEGATIVE)
--- NOTE | 2016-10-11 05:34 | NUR ---
Significant Event: Patient alert to self. Opens eyes to sound. Able to follow commands most of time. Moves all extremities spontaneously. Generalized weakness throughout. Q3 hour neuro checks and vitals. Pupils 3.0 and sluggish. Lungs clear on room air. IV in right AC running normal saline at 75ml/hr. Diet as tolerated but failed swallow study last night due to being too drowsy. Incontinent of urine. Figity/restless. On intermitent ancef. Bowel sounds active. Ativan given x1 for agitation. No complaints of headache. Afebrile. UA sent down. Hard stick for IV and lab. Follow up:PT/OT to see this AM. Renal Ultrasound this AM.
--- NOTE | 2016-10-11 13:15 | NUR ---
Introduced self and role of care management to patient's . Patient and live in [place]. Patient was just discharged last weekend. says he did OK until he spiked a temp about 24 hours after going home. She hopes to be able to take him home, but says she will have to see how he does. She says he did have HHC through [facility] and she would want that again for him. Will follow.
--- NOTE | 2016-10-11 15:09 | NUR ---
Significant Event:Patient was lethargic this am and as day progressed become more alert. Disoriented x3. Tylenol at 0710 and Motrin @ 0925. Pupils 3mm and sluggish. Hand grasp weak. Follows commands. Heavy 2 assist with transfers. LS clear and diminished. Abd soft w/active bowel tones. No edema noted. Incontinent of urine several times. IV infusing to right AC and left midline started and saline locked. Up in chair and ambulate w/ PT. at bedside. Dr. Carson consulted on case.
--- NOTE | 2016-10-12 01:43 | NUR ---
Significant Event: Alert to self, , place and occasionally time. Moves all extremities spontaneously and to command. Weakness noted throughout but stronger patient registration specialist than last night. Complains of frontal headache /10, refuses any medications. Slight edema to lower extremities. Lungs clear and diminshed on room air. VSS. Afebrile. Bradycardic. Left midline IV running normal saline at 75. IV to right AC saline locked. Up full lift. Takes pills whole. REgular diet. PET scan tomorrow - no sugar. Lungs biopsy in AM NPO at 8am. Incontinent of urine. Regular diet. Follow up:
[2016-10-12 06:09] LABS: BASOPHIL % 0.3 %; EOSINOPHIL # 0.2 K/uL (0.0-0.5); EOSINOPHIL % 2.5 %; HEMATOCRIT 38.2 % (37.0-53.0); HEMOGLOBIN 12.7 g/dL (11.0-16.0); IMMATURE GRANULOCYTE # 0.1 K/uL (0.0-0.3); LYMPHOCYTE # 2.3 K/uL (0.8-4.0); LYMPHOCYTE % 28.2 %; MCH 29.5 pg (27.0-34.0); MCHC 33.2 gm/dL (32.0-36.5); MCV 88.6 fl (83.0-98.0); MONOCYTE # 0.9 K/uL (0.0-1.0); MONOCYTE % 10.7 %; MPV 9.5 fl (9.4-12.4); NEUTROPHIL # (ANC) 4.6 K/uL (1.4-9.0); NEUTROPHIL % 57.3 %; NRBC % 0 /100WBC (0-0.00); PLATELET COUNT 235 K/uL (150-450); RBC 4.31 M/uL (3.50-5.50); RDW-CV 12.6 % (11.9-14.6)
[2016-10-12 06:23] LABS: INR - (THERAPEUTIC) 1.08 (0.92-1.07); PROTIME 11.4 SECONDS (9.8-11.4)
--- NOTE | 2016-10-12 11:00 | NUR ---
Talked with patient and . says until he has therapy she won't know if can manage him at home or not. She wants to take him home, but says he will have to be stronger than now. She asks about inpatient rehab. Explained inpt. rehab to her and she agrees he is not able at this time to participate in 3 hours of therapy. Talked to her about skilled care and options in [facility]. She says their son from [place] said he could come if needed. He is having the biopsy today and PET Scan tomorrow. She wants to see what the plans are and how therapy goes before making a decision. She again says she homes he can go home with [facility]. Will follow.
[2016-10-12 13:12] LABS: BICARBONATE 22.3 mmol/L (18.0-23.0); PCO2 30 mmHg (35-45); PO2 79 mmHg (80-90)
[2016-10-12 15:21] LABS: ALBUMIN 2.4 gm/dL (3.5-5.0); ALK PHOS 57 IU/L (33-138); ALT 68 IU/L (12-78); ANION GAP 11.5 (10.0-19.0); AST 42 IU/L (10-40); BLOOD UREA NITROGEN 14 mg/dL (6-24); CALCIUM 8.7 mg/dL (8.5-10.5); CHLORIDE 108 mMol/L (96-110); CO2 23 mMol/L (22-32); CREATININE 0.7 mg/dL (0.6-1.3); ESTIMATED GFR (MDRD EQUATION) > 60; MAGNESIUM 1.9 mg/dL (1.8-2.6); POTASSIUM 3.5 mMol/L (3.7-5.1); SODIUM 139 mMol/L (135-145); TOTAL BILIRUBIN 0.6 mg/dL (0.0-1.5); TOTAL PROTEIN 5.3 g/dL (6.0-8.4)
--- NOTE | 2016-10-12 17:57 | NUR ---
Significant Event: a/o x 3. slow to respond. denies pain- occasional mild headache. follows commands. pupils 3.0/sluggish. tele- sinus marisol. heart rate [address] ziegler updated with labs, EKG and ABGs ordered. heart rate does run in 50s. room air. full lift with transfers. peripheral IV to right anticubital. Power glide to left upper arm with NS infusing at 75ml/hr. Left NTU at 1530 for lung biopsy. pet scan on hold due to equipment not functioning. IV antibiotics for UTI. takes meds whole. regular diet. continent/incontinent of urine. Plan- PET scan when machine available.
--- NOTE | 2016-10-13 05:21 | NUR ---
Significant Event: Patient A/O x 3. Slow to respond at times. Denies N/T. Bradycardia. Keep SBP below 180. Lungs clear on room air. Regular diet. Incontinent at times. Heavy 2 assist pivot. Weakness to bilateral lower extremities, right lower extremity weaker than left. PIV to right AC. Powerglide in LUE running NS at 75 ml/hr. Tylenol given for headache last at 2232. Takes meds whole with water. Suppository given this shift. Straight cath'd x 1 for retention-675 out. Follow up:Monitor urine retention. Monitor BM.
[2016-10-13 05:46] LABS: ANION GAP 12.9 (10.0-19.0); BLOOD UREA NITROGEN 16 mg/dL (6-24); CHLORIDE 111 mMol/L (96-110); CO2 21 mMol/L (22-32); CREATININE 0.5 mg/dL (0.6-1.3); ESTIMATED GFR (MDRD EQUATION) > 60; POTASSIUM 3.9 mMol/L (3.7-5.1); SODIUM 141 mMol/L (135-145)
--- NOTE | 2016-10-13 11:31 | NUR ---
A - NUT F/U. S/P LUNG BX. NEEDS PET SCAN. HX: METASTATIC MELANOMA. UROSEPSIS. LABS: GLU 104, BUN/CR 16/0.5, ALB 2.4. MEDS: FLORASTOR, ANCEF, BOWEL/NAUSEA. DIET: REG. INTAKE: REF-50% ENSURE TID. NEEDS: 3810-9118 KCAL, 98-118 G PRO D - INADEQUATE NUTRIENT INTAKE R/T DECREASED APPETITE AEB INTAKE RECORD. I - GOAL FOR INTAKE > 50% BY NEXT ASSESSMENT. WILL CONTINUE ENSURE TID. WILL ADD MAGIC CUP @ L&D M/E - WILL MONITOR INTAKE F/U IN 4-5 DAYS.
--- NOTE | 2016-10-13 17:06 | NUR ---
Significant Event: a/o to person/ and year. not oriented to place states "holdrege" or month. denies pain. denies numbness/ tingling. Dr. Calderon did remove sutures to craniotomy site right side of head and left it open to air. IV antibiotics changed to PO antibiotics for UTI. Power glide to left upper arm with normal saline infusing at 75ml/hr. Peripheral IV to right anticubital saline locked. transfers with walker/gait belt and 1-2 assist. takes meds whole. regular diet. stool softeners administered this aftn for bowel regulation- abdomen soft/nontender and bowel sounds active. tele with NSR. Plan- PET scan when machine is functioning again. continue PO antibiotics for UTI.
--- NOTE | 2016-10-14 05:13 | NUR ---
Shift Summary: Patient has flat affect. Slow to respond to questions but has improved throughout the shift. Disoriented to month at beginning of shift, but oriented this morning. Can move well in the bed, but is a 2 assist to ambulate. C/O MATIAS x 2. Rates it at a 2. Relieved with Tylenol. Has been continent of urine all shift. Likes to use a graduate container instead of urinal. Calls for help placing it. Takes pills whole, one at a time. Has a power glide IV to left inner upper arm and a SL to right AC. In and out of sinus bradycardia. To have PET Scan when machine available. Had Lung Biopsy 10/12/16. Had a Crani 10/02. Sutures removed yesterday.
--- NOTE | 2016-10-14 17:00 | NUR ---
Significant Event: a/o x 3. forgetful at times. c/o headache at times. denies numbness/tingling. equal strength throughout. takes meds whole. Regular diet. transfers with 1-2 assist. Peripheral IV to right anticubital saline locked. Power glide to left upper arm with normal saline infusing at 75ml/hr. large formed stool this shift. continent of urine. Heart rate bradycardic at times. Cardiology on his case, aware of bradycardia. Plan- discharge to home with home health when ready.
--- NOTE | 2016-10-15 04:06 | NUR ---
Significant Event: AAOx3, denies N/T. PERRLA 3mm brisk. Denies blurred vision. Systolic 100-140's, HR 40-70's. L.S. clear and diminished, on RA. B.S. active, last BM 10/14. Incontinent of urine at times. PIV L) upper arm infusing NaCl 75mL/hr. Takes medications whole no difficulty. Regular diet. 2PA with walker for longer distances otherwise 1PA with walker/gait belt for pivot transfers. Denies pain. Slow to respond at times, flat affect. Follow up: EKG this AM, plan home with home health.
--- NOTE | 2016-10-15 17:34 | NUR ---
Significant Event: a/o to person and month and year. knows he is in a hospital. c/o dull frontal headache. PRN tylenol administered with stated relief. does have chronic visual impairment and wears glasses. equal strength throughout. room air. tele with sinus marisol. heart rate does drop to 40 at times. Cardiology is on his case. Power glide to left upper arm saline locked. Peripheral IV to right anticubital saline locked. continent/incontinent of urine. large formed bowel movement this shift. ambulates with walker/gait belt and one to two assist. takes meds whole. regular diet. orders today to discontinue timolol eye drops. Nurse tomorrow is to update Dr. Rodriguez regarding discontinuation and ask if she would like to start anything else instead of antenolol (due to them possibly causing bradycardia). continues on oral antibiotics for UTI. Pet scan needed when equipment is available. plan- home with home health when ready.
--- NOTE | 2016-10-16 04:19 | NUR ---
Significant Event: AAOx3, forgetful at times. PERRLA 3mm brisk. Denies N/T or blurred vision, impaired vision with close objects. Intermittent MATIAS. Slow to respond at times with flat affect. Equal strong strength to upper extremities. Equal moderate strength to bilateral lower extremities. Systolic 130-150's, HR 30-60's, 1+ pedal edema. L.S. clear and diminishe in lower lobes on RA. B.S. active, last BM 10/15. Incontinent of urine at times. PIV R) AC and L) upper arm mid-line SL'd. Takes medications whole with water. Regular diet. 1PA walker/gaitbelt for pivot/short distances or 2PA walker/gaitbelt longer distance. Gave Tylenol last at 0150 and Ultram at 0300 for MATIAS 09/18; relief noted. Follow up: Neuro checks, call Dr. Rodriguez this AM and notify of stopping Atenolol eye drops on 10/[address] Titus d/t patient's HR mid 30's, plan for future PET Scan either outpatient/inpatient with PET scan diet for 24hrs prior to scan. Monitor for breakthrough pain.
--- NOTE | 2016-10-16 13:15 | NUR ---
Spoke with patient and and they are planning on him going home today. says this weekend things turned around and he started doing better with therapy. They do want [facility] services to resume. Told her we will contact them and fax information to them. They talk about the treatment plans for his melanoma and how much better they feel with some plans in place. Deny other discharge needs at this time.
--- NOTE | 2016-10-16 14:57 | NUR ---
Significant Event: PT A&O x3, slow to respond at times. PT c/o slight headache, refused pain meds. Ambulates with walker, gait belt and SBA. IV patent x2. VSS, on room air. Shower this afternoon. Unable to do PET scan r/t equipment broken, will follow up as outpatient. DC to home this afternoon. Follow up:
[2016-10-16] MEDS ORDERED: ALPHAGAN 05 ML/1 BOT OPHTH (15:03)
[2016-10-16] MEDS ORDERED: CEFTIN500 MG PO (15:06)
--- NOTE | 2016-10-20 15:32 | NUR ---
Post op follow up call made to patient. Talked with patient's first and we reviewed the follow up appointments. Patient's is a nurse and she is very aware of what the patient needs to do and when the appointments are scheduled. Talked with patient. He states that he had good care in the hospital. Stated that he felt there was "alot of noise" incluiding the toilet when it was flushed. Stateed "that's the loudest toilet I've ever heard". [facility] and I will see him as his Cancer Nurse Navigator.
== END 2016-10-16 17:41 | disposition home health service (06) | DRG 698 ==
LOC: GMED 16:48 → GNTU 16:53
PROVIDERS: Internal Medicine; Nurse Practitioner Family; Radiology Diagnostic Radiology; ADMIT Neurological Surgery
PROC: 0BBC3ZX Excision of Right Upper Lung Lobe, Percutaneous Approach, Diagnostic (ICD-10-PCS; principal; 2016-10-12)
DX: T83.518A Infection and inflammatory reaction due to other urinary catheter, initial encounter (principal); G93.40 Encephalopathy, unspecified; G93.41 Metabolic encephalopathy; E87.3 Alkalosis; C79.31 Secondary malignant neoplasm of brain; N39.0 Urinary tract infection, site not specified; H53.461 Homonymous bilateral field defects, right side; R00.1 Bradycardia, unspecified; B96.20 Unspecified Escherichia coli [E. coli] as the cause of diseases classified elsewhere; I10 Essential (primary) hypertension; E78.5 Hyperlipidemia, unspecified; H40.10X0 Unspecified open-angle glaucoma, stage unspecified; R45.1 Restlessness and agitation; E66.3 Overweight; Z68.27 Body mass index [BMI] 27.0-27.9, adult; J31.0 Chronic rhinitis; R91.1 Solitary pulmonary nodule; Z87.891 Personal history of nicotine dependence; Z79.82 Long term (current) use of aspirin; R09.02 Hypoxemia
CPT/HCPCS: C1751; G0378; G0379; G0463; G8978; G8979; G8980; G8987; G8988; G8989; J0360; J0690; J2060; J7030

== ENCOUNTER → 2016-10-10 | Outpatient (CLI) | payer MEDICARE, OTHER ==
[~2016-10-10] MED LIST: ADVIL200 MG PO; ALPHAGAN 05 ML/1 BOT OPHTH; ASPIRIN LO-DOSE81 MG PO; ATIVAN 1 MG1 MG PO; BACTRIM DS1 TAB PO; CEFTIN500 MG PO; COLACE100 MG PO; DECADRON1 MG PO; DULCOLAX5 MG PO; FISH OIL 1,2001 EACH PO; GLUCOSAMINE &1 EACH PO; KEPPRA LIQU100 MG/ML PO; MACROBID100 MG PO; MACRODANTIN *IA50 MG PO; MORPHINE 20MG/ML PO; MULTIPLE VITAM1 EACH PO; NORCO 5-325 TA1 EACH PO; NORVASC5 MG PO; PRINIVIL (ZESTRI5 MG PO; SENOKOT8.6 MG PO; SUDAFED30 MG PO; TIMOPTIC XE 0.5%5 ML OPHTH; TRICOR145 MG PO; TYLENOL EXTRA500 MG PO; ULTRAM50 MG PO; VITAMIN C1000 MG PO; VITAMIN D-32000 UNI1 PO; XALATAN2.5 ML OPHTH; ZOCOR40 MG PO; ZOFRAN4 MG PO
== END | disposition disaster alternative care site (69) ==
LOC: GAMB 16:16
DX: R50.9 Fever, unspecified (principal); Z79.891 Long term (current) use of opiate analgesic
CPT/HCPCS: A0422; A0425; A0427

== ENCOUNTER 2016-11-29 17:00 | Inpatient (IN) | payer MEDICARE, OTHER ==
[~2016-11-29] VITALS: Ht 188 cm; Wt 95.5 kg
--- NOTE | ~2016-11-29 | CON ---
PATIENT'S NAME: SAVANNAH BAIG [facility] AGE: 71 Y [address] ROOM: [id number] [place], [place] [address] LOCATION: GICU ADMIT DATE: 11/29/2016 Consultation DISCHARGE DATE: FAMILY PHYSICIAN: PHYSICIAN, UNKNOWN ATTENDING PHYSICIAN: Deana Calderon DATE OF CONSULTATION: 11/30/2016 REFERRING PHYSICIAN: Zully Simms MD, PhD PALLIATIVE CARE CONSULT LOCATION: ICU 62. REASON FOR CONSULTATION: This is a palliative care referral for the patient and family support and goals of care, assist with options. HISTORY OF PRESENT ILLNESS: This 71-year-old male was admitted on 11/29/2016 with decreased level of consciousness, incontinence of urine. He recently had a craniotomy and resection of left occipital metastatic melanoma 2 months ago, was scheduled to start radiation therapy, and was outside in the heat on November 19, 2016, and had fallen and his had to help him get back in the house and into bed. He continued to have decreased level of consciousness and was taken to the hospital in [place] per ambulance. Dr. Huerta saw the patient for evaluation of seizure activity on 11/24/2016, and he started him on Keppra 1000 mg twice daily, which he had done well with the Keppra for a couple of days, and then became more weakness and decreased level of consciousness, so had held the dose. He also had a recent urinary tract infection that he was treated for on previous hospitalization. The patient was transferred to [facility] for higher level of care and decreased consciousness and to follow up on craniotomy and resection of his melanoma. Currently, the patient is lethargic, does arouse periodically. He is able to take his own medicine and ate a fair breakfast with assistance. No pain or discomfort noted. No nausea or vomiting. No shortness of breath. The patient has snoring respirations at times. O2 sats drop into the upper 80s at times. states that he does not have any history of sleep apnea. PAST MEDICAL HISTORY: Hypertension; hypercholesterolemia; recurrent prostatitis; diverticulosis; malignant brain melanoma; glaucoma; benign prostatic hyperplasia, severe; and bipolar disorder. PAST SURGICAL HISTORY: PATIENT'S NAME: SAVANNAH BAIG [facility] AGE: 71 Y [address] ROOM: [id number] [place], [place] [address] LOCATION: [facility] ADMIT DATE: 11/29/2016 Consultation DISCHARGE DATE: FAMILY PHYSICIAN: PHYSICIAN, UNKNOWN ATTENDING PHYSICIAN: Deana Calderon Tonsillectomy in 1990, appendectomy in 8, arthroscopy of left shoulder in 1997, arthroscopy of the left shoulder in 2007 with rotator cuff repair and right shoulder surgery in 2006; left occipital craniotomy with resection of hemorrhagic tumor and right occipital biopsy done on September 12, 2016. ALLERGIES: CYMBALTA. HOME MEDICATIONS: 1. Amlodipine 5 mg daily. 2. TriCor 145 mg daily. 3. Zocor 80 mg daily. 4. Lisinopril 5 mg at bedtime. 5. Xalatan 1 drop both eyes at bedtime. 6. Tramadol 50 mg every 8 hours p.r.n. 7. Xanax 0.5 mg twice a day. 8. Multivitamin daily. 9. Vitamin C 1000 mg daily. 10. Vitamin D 2000 International Units daily. 11. Glucosamine 1500 mg daily. 12. Chondroitin 1200 mg daily. 13. Fish oil 1200 mg daily. 14. Baby aspirin 81 mg daily. 15. Pecos 1 to 2 tabs every 4 hours as needed. 16. Zofran 4 mg 4 times a day as needed. 17. Ibuprofen 600 mg every 6 hours p.r.n. 18. Tylenol 500 mg every 6 hours as needed. 19. Colace twice a day. 20. Alphagan eyedrops 0.2% both eyes twice daily. 21. Senna 2 tabs twice daily. 22. Keppra 1000 mg twice daily. 23. Macrodantin 50 mg at bedtime. SOCIAL HISTORY: The patient is . She has 2 sons, 2 daughters, had been a blankenship office electrician. Alcohol, consumes alcohol every couple of days, none recently. History of smoking and chewing tobacco for 6 to 7 years. FAMILY HISTORY: Father with cancer, with from myocardial infarction. Mother cured of her lip cancer, of heart failure. Two brothers and 1 sister are all living. Paternal grandfather in his 80s of renal carcinoma and paternal great aunt of cutaneous melanoma. REVIEW OF SYSTEMS: PATIENT'S NAME: SAVANNAH BAIG [facility] AGE: 71 Y [address] ROOM: [id number] [place], [place] [address] LOCATION: [facility] ADMIT DATE: 11/29/2016 Consultation DISCHARGE DATE: FAMILY PHYSICIAN: PHYSICIAN, UNKNOWN ATTENDING PHYSICIAN: Deana Calderon Chart was reviewed. Discussed with , and a complete review of systems is negative except as mentioned in the HPI and listed below. GI: Appetite had been good until recently. The states he has lost about 33 pounds over the past few months. : He does have some difficulty urinating, incontinence over the past week of urine. He does have a history of prostatitis and history of UTIs. PSYCH: He does have a history of depression. He had been in [facility] for treatment for his depression and history of ECT treatments. PHYSICAL EXAMINATION: GENERAL: This is a 71-year-old male, well-developed. VITAL SIGNS: Temperature 97.7, pulse 65, respirations 24, O2 saturations 94%, blood pressure 151/70. GENERAL: Lethargic, in no acute distress. SKIN: Warm and dry. Color pale. HEENT: Normocephalic and atraumatic. Sclerae anicteric. Conjunctivae pale and pink. Pupils are 2 mm, reactive. Mouth is pink and moist without exudate. LYMPH: No cervical adenopathy or thyromegaly. RESPIRATORY: Clear to auscultation bilaterally. Breath sounds even and regular. CARDIAC: S1, S2 without murmurs or bruits. ABDOMEN: Soft, nontender. Positive bowel tones. No hepatosplenomegaly. NEUROLOGICAL: Grossly intact. No focal deficits. MUSCULOSKELETAL: Appropriate range of motions without deficits. EXTREMITIES: No cyanosis or deformities. Palliative performance scale is 30%, totally bedbound, unable do any activity, total care, intake is reduced, and conscious level is drowsy with some confusion. IMPRESSION: 1. Altered level of consciousness. 2. Weakness and fatigue. PLAN: Met with , [place], who is a retired nurse. She has a good understanding of recent conditions and past medical history and recent diagnosis of the metastatic brain tumor with possible lesion on lung and seizures. She has talked with Dr. Calderon. He recommends no surgery at this time. She is waiting to talk with Dr. Carson and Dr. Simms on condition to see if they are still possible options with the patient's current decline in status. GOALS: 1. She is hopeful that steroids will help decrease inflammation and help him PATIENT'S NAME: SAVANNAH BAIG [facility] AGE: 71 Y [address] ROOM: [id number] [place] [id number] LOCATION: GICU ADMIT DATE: 11/29/2016 Consultation DISCHARGE DATE: FAMILY PHYSICIAN: PHYSICIAN, UNKNOWN ATTENDING PHYSICIAN: Deana Calderon wake up. 2. Possibly get some radiation treatments to decrease edema hopefully help increase his quality of life that he may be able to get a little stronger to get back home where he enjoys being and working in his garden. CODE STATUS AND ADVANCE DIRECTIVE: had changed code status to a DNR/DNI today, states that he would not want to live on life support. Discussed support systems. has a good support system. One son lives in [place] close to them, has a granddaughter who lives here in town who comes up daily to help her. Other children, one lives in [place], [place]; one in [place]; and a daughter in [place]. They recently have seen all the children in [place], [place] in August of this year. When she gets more of the discussion from Dr. Carson, she will let them all know of the patient's condition. LONG-TERM GOALS: She hopes to get him to a long-term closer to [place]. She is unable to care for him as he is not stronger than he is now. She is worn out from 24- hour care. EMOTIONAL SUPPORT: Emotional support given to . Encouraged to call if any questions. Total time was 65 minutes with 55 minutes for counseling, discussion on condition, goals of care, answered all questions and concerns. Thank you for allowing me to assist this patient and family. MICHAEL REGAN NP FOR MD SUNSHINE TIWARI/catrachito /[id number] CC: MD Deana Handy MD d: 11/30/16 2152 t: 12/05/16 1511, CONSULTATION REPORT
--- NOTE | ~2016-11-29 | HP ---
PATIENT'S NAME: ELLIS SUE [facility] AGE: 71 Y [address] ROOM: [place] [address] LOCATION: [facility] ADMIT DATE: 11/29/2016 History & Physical DISCHARGE DATE: FAMILY PHYSICIAN: PHYSICIAN, UNKNOWN ATTENDING PHYSICIAN: Deana Calderon DATE OF SERVICE: 11/29/2016 PATIENT IDENTIFICATION: Ellis Sue is a 71-year-old male. PRESENTING COMPLAINT: Decreased responsiveness. HISTORY OF PRESENT ILLNESS: The patient underwent craniotomy and resection of left occipital metastatic melanoma 2 months ago. He was scheduled to start radiation therapy tomorrow. Over the last several days, the patient's level of functioning has declined. He did have a seizure last week and was seen by Neurology and started on anti- seizure medication. He has not had any further seizures. On account of his declining function, the patient was readmitted to the hospital for investigation and treatment. Following the craniotomy and resection of his melanoma, the patient did have a UTI that required readmission to the hospital also, but he got over that pretty well and was returning to his normal level of function, getting around with his walker. He also has a history of glaucoma and had his high pressures checked recently, and according to the patient's family, the high pressures were normal. PAST MEDICAL HISTORY: Notable for hypertension, hypercholesterolemia, recurrent prostatitis, diverticulosis. SURGICAL PROCEDURES: Arthroscopy to the left shoulder. CURRENT MEDICATIONS: 1. Keppra 1000 mg twice a day. 2. Senna. 3. Nitrofurantoin. 4. Brimonidine. ALLERGIES: PATIENT'S NAME: ELLIS SUE [facility] AGE: 71 Y [address] ROOM: [place] [address] LOCATION: [facility] ADMIT DATE: 11/29/2016 History & Physical DISCHARGE DATE: FAMILY PHYSICIAN: PHYSICIAN, UNKNOWN ATTENDING PHYSICIAN: Deana Calderon PLEASE SEE CHART. REVIEW OF SYSTEMS: A 10-point review of systems was carried out. The only abnormal finding is the patient's decline in level of functioning. This would be under constitutional symptoms. FAMILY HISTORY: There is no family history of similar problems. SOCIAL HISTORY: The patient is . He is a nonsmoker and a nondrinker. PHYSICAL EXAMINATION: GENERAL: The patient is a middle-aged to elderly gentleman, who was seen in the ICU floor. VITAL SIGNS: On admission, blood pressure is 170/82, heart rate is 73, saturation 94. NEUROLOGICAL: His speech is slow but coherent. He is oriented to place but did not comment on time and date. Cranial nerves: No facial weakness. Pupils are reactive. Extraocular movements are full. Motor: The patient has normal strength in all his extremities. CARDIOVASCULAR: Heart sounds are present. RESPIRATORY SYSTEM: The patient is not short of breath at bedside. EXTREMITIES: No cyanosis or clubbing. SKIN: No skin rashes or skin masses. HEENT: His head is atraumatic. Eyes and Ears: No evidence of trauma. REVIEW OF IMAGING STUDIES: The patient has had a head CT scan done. The head CT scan shows increased edema in the left parieto-occipital area compressing the occipital horn of the left lateral ventricle. The patient's ventricles appear slightly larger than on earlier CT scans. ASSESSMENT: A 71-year-old male with known metastatic brain melanoma, presenting with decreased responsiveness and a history of seizure last week. MEDICAL DECISION MAKING: The patient is being admitted for workup. He will be continued on anti- seizure medications. MRI of his brain will be performed tomorrow to check on the status of his tumor. His other medical problems will be managed by the Hospitalist Service. PATIENT'S NAME: ELLIS SUE [facility] AGE: 71 Y [address] ROOM: [place] [address] LOCATION: [facility] ADMIT DATE: 11/29/2016 History & Physical DISCHARGE DATE: FAMILY PHYSICIAN: PHYSICIAN, UNKNOWN ATTENDING PHYSICIAN: Deana Calderon MD JIL FARIA/catrachito /[id number] CC: Helena Olvera PA-C D: 041 T: HISTORY & PHYSICAL
--- NOTE | ~2016-11-29 | DS ---
PATIENT'S NAME: SAVANNAH BAIG [facility] AGE: 71 Y [address] ROOM: [id number] [place], [place] [address] LOCATION: [facility] ADMIT DATE: 12/01/2016 Discharge Summary DISCHARGE DATE: 12/04/2016 FAMILY PHYSICIAN: Helena Olvera PA-C ATTENDING PHYSICIAN: Deana Calderon Discharged home with hospice care on December 04, 2016. REASON FOR ADMISSION: Decreased responsiveness. DETAILS: The patient had had craniotomy and resection of a metastatic melanoma 2 months prior. The patient was scheduled to start radiation therapy, but over the last couple of days prior to the admission to hospital, his level of function had declined and it was necessary to admit him to the hospital. He had also had a seizure and was being treated by Neurology with antiseizure medications. The patient was admitted to hospital and underwent MRI scan. The MRI scan showed apparent recurrence of his metastatic melanoma, not only at the site of surgery but also involving other areas of the brain. Additionally, the patient had developed hydrocephalus, which was complicating his level of consciousness and responsiveness. TREATMENT RENDERED: The patient was started on Decadron and this helped to improve his level of consciousness some. Discussion was held with the patient's and son regarding further treatment. Overall, it was felt that the patient's prognosis was pretty grim at this time given the extent of the tumor recurrence as well as his overall functioning. In light of this, aggressive treatment such as surgery was deemed inappropriate. The patient's family was comfortable with palliative care and hospice treatment. The Oncology Service was also consulted and they were in agreement to this plan of management. The patient was therefore discharged home on December 04, 2016, with hospice services in place to take care of him. Unfortunately, there was no specific treatment given other than symptomatic treatment with Decadron and antiseizure medications. FINAL DIAGNOSES: 1. Recurrent metastatic melanoma to brain. 2. Hospice care. DEANA CALDERON MD PATIENT'S NAME: SAVANNAH BAIG [facility] AGE: 71 Y [address] ROOM: [address] [address] LOCATION: [facility] ADMIT DATE: 12/01/2016 Discharge Summary DISCHARGE DATE: 12/04/2016 FAMILY PHYSICIAN: Helena Olvera PA-C ATTENDING PHYSICIAN: Deana Calderon/catrachito /[id number] CC: Helena Olvera PA-C d: 12/19/16 0251 t: 12/20/16 1539, DISCHARGE SUMMARY
--- NOTE | ~2016-11-29 | CON ---
[facility] 71 Y [address] ROOM: [id number] [place], [place] [address] LOCATION: [facility] ADMIT DATE: 11/29/2016 Consultation DISCHARGE DATE: FAMILY PHYSICIAN: PHYSICIAN, UNKNOWN ATTENDING PHYSICIAN: Deana Calderon REFERRING PHYSICIAN: Deana Calderon MD REASON FOR CONSULTATION: Medical management. HISTORY OF PRESENT ILLNESS: The patient is a 71-year-old male with past medical history most significant for a recent craniotomy with excision of a left posterior occipital brain tumor, believed to be a melanoma. This is approximately 2 months ago. The patient was brought into the hospital in [place] by his earlier today because of worsening confusion as well as unsteadiness. A workup in [place] revealed a worsening edema over the left hemisphere as well as ventriculomegaly, pronounced from prior study. The patient was transferred to [facility] to the care of Dr. Calderon. At this point per discussion with the , aside from worsening mental state and unsteadiness, she does not volunteer any additional complaints. The patient is quite altered and does not really provide any additional history or symptomatology. REVIEW OF SYSTEMS: All systems have been reviewed and are negative except pertinent positives mentioned above. PAST MEDICAL HISTORY: 1. Brain tumor, status post excision. 2. Recurrent UTIs. 3. Glaucoma. 4. Essential hypertension. 5. Hypercholesterolemia. 6. Seizures, currently on Keppra. 7. Recent episode of urosepsis. SOCIAL HISTORY: Positive for a past history of tobacco use, but no current toxic habits. FAMILY HISTORY: Reviewed and noncontributory due to known underlying etiology for his presentation here. CURRENT MEDICATIONS: PATIENT'S NAME: SAVANNAH BAIG [facility] AGE: 71 Y [address] ROOM: [id number] [place], [place] [address] LOCATION: [facility] ADMIT DATE: 11/29/2016 Consultation DISCHARGE DATE: FAMILY PHYSICIAN: PHYSICIAN, UNKNOWN ATTENDING PHYSICIAN: Deana Calderon 1. Amlodipine. 2. Ascorbic acid. 3. Aspirin. 4. Alphagan. 5. Cholecalciferol. 6. TriCor. 7. Fish oil. 8. Glucosamine. 9. Pax. 10. Xalatan. 11. Lisinopril. 12. Multivitamin. 13. Nitrofurantoin. 14. Zofran. 15. Senna. 16. Simvastatin. 17. Ultram. PHYSICAL EXAMINATION: VITAL SIGNS: Temperature 97.8, pulse 63, respirations 28, blood pressure 153/74, and saturating 93% on room air. GENERAL: Appears chronically ill, elderly male, in no acute distress. Alert but not really communicative. NEUROLOGIC: A detailed neurological exam cannot be conducted. EYES: Pupils are equal and reactive to light. LYMPHATIC: No cervical lymphadenopathy. ENDOCRINE: No thyromegaly. LUNGS: Clear to auscultation. HEART: Rate is regular. GI: Abdomen is soft, nontender, and nondistended. : No costovertebral angle tenderness. VASCULAR: 2+ pedal pulses. MUSCULOSKELETAL: Unremarkable. LABORATORY DATA: Review of the studies from [place] shows no significant lab abnormalities. A CAT scan with worsening edema and ventriculomegaly. IMPRESSION AND RECOMMENDATIONS: This is a 71-year-old male, admitted with some structural encephalopathy due to worsening edema and ventriculomegaly. 1. Brain edema/ventriculomegaly. We will defer to primary team. 2. Essential hypertension. We will continue the patient on his home medications. 3. Recurrent urinary tract infections. We will continue his prophylaxis PATIENT'S NAME: SAVANNAH BAIG [facility] AGE: 71 Y [address] ROOM: [place] [address] LOCATION: [facility] ADMIT DATE: 11/29/2016 Consultation DISCHARGE DATE: FAMILY PHYSICIAN: PHYSICIAN, UNKNOWN ATTENDING PHYSICIAN: Deana Calderon with nitrofurantoin. 4. History of seizures. We will continue the patient on Keppra. 5. Metastatic melanoma to the brain. As per Oncology. 6. Deep venous thrombosis prophylaxis. We will await the results of the MRI before starting any sort of anticoagulation. Additional management will depend on clinical course. Thank you for allowing us to participate in the care of this gentleman. Time dedicated to this patient's encounter is 25 minutes. MD PANTERA MILLER/catrachito /[id number] d: 11/30/16 0409 t: 12/09/16 1908, CONSULTATION REPORT
--- NOTE | ~2016-11-29 | CON ---
PATIENT'S NAME: ELLIS SUE [facility] AGE: 71 Y [address] ROOM: [id number] [place], [place] [address] LOCATION: GICU ADMIT DATE: 11/29/2016 Consultation DISCHARGE DATE: FAMILY PHYSICIAN: PHYSICIAN, UNKNOWN ATTENDING PHYSICIAN: Deana Calderon DATE OF CONSULTATION: 11/30/2016 REFERRING PHYSICIAN: Zully Simms MD, PhD REQUESTING PHYSICIAN: This is a consult to Dr. Calderon. HISTORY OF PRESENT ILLNESS: Ellis Sue is a 71-year-old man with progressive intracranial melanoma. The history of the present illness and past medical history is well-documented in the [facility] note, completed by Dr. Dayron Duarte on 11/03/2016, which is appended to the chart as well as the Oncology consultation done in [facility] on 10/16/2016 and will not be repeated here. Since Dr. Duarte saw this patient several things have developed. The patient visited with Dr. Simms. The pros and cons of whole-brain radiation versus SBRT in 3-5 fractions was considered. Mrs. Sue makes the point that they were asked to decide between the two courses and ultimately chose SBRT. Dr. Simms planned to initiate therapy on 12/01/2016. Dr. Duarte saw the patient on 11/03/2016. He reviewed the results of the lung nodule biopsy on 10/12/2016. That biopsy was nondiagnostic for cancer. Dr. Duarte also reviewed the results of the BRAF V600E mutation test and reported the biopsy revealed no evidence of the mutation, so targeted therapy for melanoma was not available to Mr. Sue. Mr. Sue was doing reasonably well until 11/19/2016. He was at home and walking with a cane. On 11/19/2016, the patient experienced a tonic-clonic seizure and was taken to the emergency room in [place]. The patient was observed in the emergency room and discharged to home. Mrs. Sue recalls the CAT scan was "unchanged." At that time no anticonvulsants were prescribed, according to Mrs. Sue. On 11/22/2016, the patient saw his physician's health center assistant, ZI Ruff, who arranged for prompt neurological consultation. On 11/24/2016, the patient saw Dr. Huerta, who recommended levetiracetam 1000 PATIENT'S NAME: ELLIS SUE [facility] AGE: 71 Y [address] ROOM: [id number] [place], [place] [address] LOCATION: [facility] ADMIT DATE: 11/29/2016 Consultation DISCHARGE DATE: FAMILY PHYSICIAN: PHYSICIAN, UNKNOWN ATTENDING PHYSICIAN: Deana Calderon mg p.o. b.i.d. Two days later, on 11/26, the patient experienced "difficulties." The patient developed urinary incontinence. On 11/27/2016, Mrs. Sue called Dr. Huerta's office and the anticonvulsants were discontinued. On 11/28/2016, the patient was evaluated. The urinalysis was negative, which was important because he had experienced sepsis in the past. It was noticed the patient had lost 33 pounds since the diagnosis. The patient was still eating and drinking, but Mrs. Sue could not take care of him at home. The plan was to admit him to the [facility] and then transfer him to a senior care after a three day stay. On 11/29/2016, the patient was seen in the [facility] ER. A CAT scan of the brain revealed, according to the patient's , fluid. Therefore, the patient was transferred directly to [facility]. In the [facility] Emergency Room, the white count was 9400, the hemoglobin was 13.8, the MCV was 90, and the platelets were 250,000. The general chemical profile was unremarkable except for a slightly elevated calcium of 10.6 G/dL and a slightly low potassium at 3.3 millimoles per litre. The patient was transferred to [facility]. An MRI of the brain was performed this morning. The scan was compared to 10/04/16. There were enlarging enhancing masses present in the left temporal lobe measuring 1.7 cm up from 0.4 cm 2 months ago. A 2.2 cm mass was noted at the high posterior left parietal lobe which measured 0.8 cm previously. The left occipital mass had enlarged to 0.5 cm. There were new enhancing masses present at the medial left parietal occipital region as well as several areas of abnormal intraventricular enhancement involving medial aspects of the temporal horns bilaterally. There was increased edema and mass effect since the prior study, worse at the left temporal and high posterior parietal occipital region. There was partial effacement of the posterior horn of the left lateral ventricle as well as the temporal horn of the lateral ventricle. There was increased dilation of the ventricles concerning for developing hydrocephalus. Dexamethasone was initiated for cerebral edema, 10 mg IV initially and 4 mg IV every 6 hours. Palliative Care has been involved and Dr. Simms has been consulted. The Hospitalist Service has also helped care for Mr. Sue. MEDICATIONS: PATIENT'S NAME: ELLIS SUE [facility] AGE: 71 Y [address] [place]: [id number] [address] LOCATION: [facility] ADMIT DATE: 11/29/2016 Consultation DISCHARGE DATE: FAMILY PHYSICIAN: PHYSICIAN, UNKNOWN ATTENDING PHYSICIAN: Deana Calderon Upon admission: 1. Amlodipine 5 mg p.o. q.24 h. 2. Ascorbic acid 1000 mg p.o. q.24 h. 3. ASA 81 mg p.o. b.i.d. 4. Brimonidine tartrate 1 drop b.i.d. 5. Cholecalciferol 2000 units p.o. daily. 6. Fenofibrate 140 mg p.o. daily. 7. Fish oil 1200 mg p.o. daily. 8. Glucosamine and chondroitin 2 capsules p.o. daily. 9. Hydrocodone/APAP 1 to 2 tablets p.o. every 4 hours. 10. Latanoprost 1 drop ophthalmic at night. 11. Levetiracetam 1000 mg p.o. b.i.d. (questionable compliance). REVIEW OF SYSTEMS: Review of symptoms was otherwise negative until 11/19/2016. PHYSICAL EXAMINATION: VITAL SIGNS: Pulse 68 and regular, blood pressure 135/65, respiratory rate 18, and temperature 98.0. Height 74 inches, weight 94.4 kg (208 pounds). BMI 26.7 kg/M2. GENERAL: A well-developed, slightly overweight, 71-year-old, male, unresponsive and unarousable. HEENT: Healed left occipital scar, and healed right occipital biopsy scar. LYMPH NODES: None palpable. NECK: Without JVD or carotid bruits. SKIN: Nevi, macdonald angiomas, and [id number] spot just below the left breast. CHEST: Clear anteriorly. CARDIOVASCULAR: Regular rhythm. No murmurs, bruits, or adventitious sounds. ABDOMEN: No masses, tenderness, or megaly. GENITALIA AND RECTAL: Not examined. EXTREMITIES: Without peripheral edema. Pulses 2+ throughout. NEUROLOGIC: The patient's left arm and right arm are flaccid. The patient has bilateral extensor reflexes on Babinski testing. IMPRESSION: 1. This is a grim situation. The patient's intracranial metastases have increased in number and size in just 2 months. 2. There is clearly a role for palliative care. 3. There is clearly no role for surgery at this point, unless it might be consideration of an emergent ventriculoperitoneal shunt and I suspect this would be overzealous in the palliative setting. 4. Systemic therapy is sometimes active in melanoma and sometimes effective in brain metastases. The patient is not a candidate for targeted therapy, which is most active in brain metastases because he does not PATIENT'S NAME: ELLIS SUE [facility] AGE: 71 Y [address] ROOM: [address] [address] LOCATION: [facility] ADMIT DATE: 11/29/2016 Consultation DISCHARGE DATE: FAMILY PHYSICIAN: PHYSICIAN, UNKNOWN ATTENDING PHYSICIAN: Deana Calderon have the BRAF mutation driving the goals of the tumor. Sometimes patients have been stable on check point inhibitors, and occasional responses have been noted. That being said, check point inhibitors do not work rapidly and it would probably be overzealous to administer them in this situation. 5. Melanoma is relativelyradio resistant and the patient has multiple cranial metastases. I harbor doubts there is even much hope for palliative benefit from whole brain radiation therapy in this situation, but will be interested to see what Dr. Simms thinks. The possible new hydrocephalus is very concerning. RECOMMEND: Diagnostics: 1. Proceed with the consult for Dr. Simms, which Dr. Calderon has already requested. Treatment: 1. Best supportive care, with palliative care here in the hospital and probably hospice if and when he leaves the hospital. 2. (?) Whole brain radiation. Patient Education: 1. Acknowledged that best supportive care and placement on hospice is clearly appropriate when visiting with Mrs. Sue. 2. Discussed what is and isn't known about systemic therapy with VESSEL LINER metastases from melanoma and felt that would not improve his prospects. 3. I made the point we need to listen to what Dr. Simms has to say but it is possible Mr. Sue will, regrettably, be a candidate only for the best supportive care without definitive tumor therapy. NASH PENG MD GKB/modl /[id number] CC: MD Helena Sue, MALA Eid, CHENCHO Simms MD, PhD d: 12/01/16 1444 t: 12/01/16 1741, CONSULTATION REPORT
--- NOTE | ~2016-11-29 | FOL ---
PATIENT'S NAME: ELLIS SUE [facility] AGE: 71 Y [address] ROOM: [id number] [place], [place] [address] LOCATION: [facility] ADMIT DATE: 12/01/2016 Oncology Report DISCHARGE DATE: FAMILY PHYSICIAN: Helena Olvera PA-C ATTENDING PHYSICIAN: Deana Calderon RADIATION THERAPY FOLLOWUP NOTE DATE OF SERVICE: 12/01/2016 DIAGNOSIS: Metastatic melanoma. Dear Doctor: Mr. Ellis Sue was seen today as an inpatient. As you recall, this is a 71- year-old white male with a known history of metastatic melanoma, most recently to the area of the brain. The patient did undergo craniotomy under Dr. Calderon's care, pathology was confirmed. He subsequently had been scheduled for a potential stereotactic radio surgery but was recently admitted to the hospital secondary to having decreased mental status changes. The patient was found on repeat scans to have multiple areas in the brain with metastatic disease and at this point, he is felt not to be a candidate for stereotactic radiosurgery. When initially brought into the hospital, he was minimally responsive. Yesterday, he was not responding. Today as his steroids have kicked in, he appears to be significantly better. He is alert, oriented x2, answers questions appropriately. He is able to raise his arms and legs and indicates he is otherwise feeling better. He indicates he knows for sure who is the sap plant maintenance consultant is. PHYSICAL EXAMINATION: VITAL SIGNS: Include a temperature of 98.3, a pulse of 79, blood pressure 134/70, weight is 94.8 kilos. GENERAL: A heavy-set bearded gentleman, lying in a chair. HEAD AND NECK: Normocephalic, atraumatic. Extraocular motions are intact. Oral cavity with no masses or mycotic lesions. NEUROLOGIC: Alert. He knows who the president is, knows who his is, is unclear to which facility he is in at this time. He answers questions appropriately. He is able to raise both his arms and his legs and appears to have equal muscle strengths on both sides. PLAN: We discussed with the patient and his the options available to him. We indicated to him that options would include whole brain radiotherapy given the extent of his disease. Also we indicated that he would be treated for a PATIENT'S NAME: ELLIS SUE [facility] AGE: 71 Y [address] [id number] [address] LOCATION: [facility] ADMIT DATE: 12/01/2016 Oncology Report DISCHARGE DATE: FAMILY PHYSICIAN: Helena Olvera PA-C ATTENDING PHYSICIAN: Deana Calderon relatively limited period of time or a 1-2 week period of time per NCCN guidelines. The patient indicated he was unclear whether or not he would wish to proceed with therapy. Both he and his asked appropriate questions. They were answered to their satisfaction. The patient and his will make a decision as to whether or not he would wish to proceed with therapy. Should this be the case, he will be brought down for CT simulation and started on therapy in short order. We would anticipate treating him for a 5-10 treatment fraction course. We thank you for allowing us to participate in his care. Sincerely, HAIR DEJESUS MD, PHD YAAKOV/catrachito /[id number] CC: MD Deana Handy MD Nicole Buettner, PA-C d: 12/01/16 1853 t: 12/18/16 0849, FOLLOW-UP NOTE
[~2016-11-29 17:00] MED LIST changes: +ADVIL200 MG PO; +ALPHAGAN 05 ML/1 BOT OPHTH; +CEFTIN500 MG PO; +COLACE100 MG PO; +DULCOLAX5 MG PO; +MACROBID100 MG PO; +ZOFRAN4 MG PO
[2016-11-29] MEDS ORDERED: SENOKOT8.6 MG PO (20:16)
[2016-11-29] MEDS ORDERED: MACRODANTIN *IA50 MG PO (20:17)
[2016-11-30] MEDS ORDERED: KEPPRA LIQU100 MG/ML PO (11:17)
[2016-12-01 05:37] LABS: BASOPHIL % 0.1 %; HEMATOCRIT 40.6 % (37.0-53.0); HEMOGLOBIN 13.8 g/dL (11.0-16.0); IMMATURE GRANULOCYTE # 0.1 K/uL (0.0-0.3); IMMATURE GRANULOCYTE % 0.5 %; LYMPHOCYTE # 1.4 K/uL (0.8-4.0); LYMPHOCYTE % 15.5 %; MCH 30.3 pg (27.0-34.0); MCV 89.2 fl (83.0-98.0); MONOCYTE # 0.4 K/uL (0.0-1.0); MONOCYTE % 4.6 %; MPV 10.5 fl (9.4-12.4); NEUTROPHIL # (ANC) 7.3 K/uL (1.4-9.0); NEUTROPHIL % 79.3 %; NRBC % 0 /100WBC (0-0.00); PLATELET COUNT 281 K/uL (150-450); RBC 4.55 M/uL (3.50-5.50); RDW-CV 12.9 % (11.9-14.6); WBC 9.3 K/uL (4.0-11.0)
[2016-12-01 05:56] LABS: ALBUMIN 3.2 gm/dL (3.5-5.0); ALK PHOS 74 IU/L (33-138); ALT 24 IU/L (12-78); ANION GAP 12.3 (10.0-19.0); AST 20 IU/L (10-40); BLOOD UREA NITROGEN 18 mg/dL (6-24); CALCIUM 10.7 mg/dL (8.5-10.5); CHLORIDE 109 mMol/L (96-110); CO2 27 mMol/L (22-32); CREATININE 0.8 mg/dL (0.6-1.3); ESTIMATED GFR (MDRD EQUATION) > 60; MAGNESIUM 1.8 mg/dL (1.8-2.6); POTASSIUM 3.3 mMol/L (3.7-5.1); SODIUM 145 mMol/L (135-145); TOTAL BILIRUBIN 0.8 mg/dL (0.0-1.5); TOTAL PROTEIN 7.2 g/dL (6.0-8.4)
[2016-12-02 06:01] LABS: ANION GAP 11.6 (10.0-19.0); BLOOD UREA NITROGEN 26 mg/dL (6-24); CALCIUM 10.5 mg/dL (8.5-10.5); CHLORIDE 111 mMol/L (96-110); CO2 26 mMol/L (22-32); CREATININE 0.8 mg/dL (0.6-1.3); ESTIMATED GFR (MDRD EQUATION) > 60; POTASSIUM 3.6 mMol/L (3.7-5.1); SODIUM 145 mMol/L (135-145)
[2016-12-04] MEDS ORDERED: MORPHINE 20MG/ML PO (13:36)
[2016-12-04] MEDS ORDERED: ATIVAN 1 MG1 MG PO (13:37)
[2016-12-04] MEDS ORDERED: DECADRON1 MG PO (14:06)
== END 2016-12-04 15:44 | disposition hospice, home (50) | DRG 54 ==
LOC: GICU 18:04
PROVIDERS: Family Medicine; Nurse Practitioner Family; ADMIT Neurological Surgery
DX: C79.31 Secondary malignant neoplasm of brain (principal); G93.40 Encephalopathy, unspecified; G93.6 Cerebral edema; G91.9 Hydrocephalus, unspecified; G93.89 Other specified disorders of brain; Z51.5 Encounter for palliative care; Z66 Do not resuscitate; I10 Essential (primary) hypertension; K57.90 Diverticulosis of intestine, part unspecified, without perforation or abscess without bleeding; N40.0 Benign prostatic hyperplasia without lower urinary tract symptoms; R73.9 Hyperglycemia, unspecified; Z87.440 Personal history of urinary (tract) infections; Z85.820 Personal history of malignant melanoma of skin
CPT/HCPCS: A9577; G0378; G8978; G8979; G8980; G8987; G8988; G8989; J1100; J1650; J3480; J7050

== ENCOUNTER → 2016-12-02 | Outpatient (CLI) | payer MEDICARE, OTHER ==
[~2016-12-02] MED LIST changes: +ATIVAN 1 MG1 MG PO; +DECADRON1 MG PO; +KEPPRA LIQU100 MG/ML PO; +MACRODANTIN *IA50 MG PO; +MORPHINE 20MG/ML PO; +SENOKOT8.6 MG PO
== END | disposition disaster alternative care site (69) ==
LOC: GAMB 08:00
DX: Z51.0 Encounter for antineoplastic radiation therapy (principal)

== ENCOUNTER → 2016-12-04 | Outpatient (CLI) | payer MEDICARE, OTHER | END | disposition disaster alternative care site (69) | LOC: GAMB 15:30 | DX: C71.9 Malignant neoplasm of brain, unspecified (principal); R51 Headache; R11.0 Nausea; R42 Dizziness and giddiness; R41.82 Altered mental status, unspecified; Z86.73 Personal history of transient ischemic attack (TIA), and cerebral infarction without residual deficits; Z79.2 Long term (current) use of antibiotics; Z79.891 Long term (current) use of opiate analgesic; Z79.899 Other long term (current) drug therapy | CPT/HCPCS: A0425; A0428 ==